=== PATIENT | female | born 1975 | race African-American/Black ===

== ENCOUNTER 2017-04-21 11:28 | Outpatient (CLI) | payer MEDICAID ==
[2017-04-21 12:34] LABS: #Basophils 0.1 thou/uL (0.0-0.2); #Eosinphils 0.2 thou/uL (0.0-0.7); #Lymphocytes 2.5 thou/uL (1.20-3.40); #Monocytes 0.7 thou/uL (0.11-0.59); #Neutrophils 4.4 thou/uL (1.40-6.50); %Eosinophils 2.5 % (0.0-10.0); %Lymphocytes 32.1 % (21.0-51.0); %Monocytes 8.4 % (0.0-10.0); Hematocrit 41.3 % (36.0-47.0); Mean Platelet Volume 6.3 fL (7.4-10.4); Red Blood Cell (RBC) Count 4.18 mill/uL (4.20-5.40); White Blood Cell (WBC) Count 7.8 thou/uL (4.8-10.8)
[2017-04-21 13:00] LABS: Anion Gap 15 mmol/L (10-20); BUN (Urea Nitrogen) 10 mg/dL (7.0-18.7); Calc. Creatinine Clearance 0 mL/min (70-130); Calcium 9.4 mg/dL (7.8-10.44); Carbon Dioxide 24 mmol/L (22-29); Chloride 105 mmol/L (98-107); Estimated GFR-MDRD Greater than 90
== END 2017-04-21 11:29 | disposition home or self-care (01) ==
LOC: LABBT 11:28
PROVIDERS: ATTEND Specialist
DX: Z01.812 Encounter for preprocedural laboratory examination (principal); L73.2 Hidradenitis suppurativa; L03.111 Cellulitis of right axilla
CPT/HCPCS: 80048; 85025

== ENCOUNTER 2017-04-29 07:34 | Day surgery (SDC) | payer MEDICAID, OTHER ==
[2017-04-21 11:37] VITALS: BMI 45.7
[2017-04-29] MEDS ORDERED: Ketorolac Tromethamine 30 MG/ML VIAL ONE (08:51)
[2017-04-29] MEDS ORDERED: Bupivacaine HCl 0.5%/Epinephrine 1:200,000/PF 30 ml Vial ONE (10:29)
[2017-04-29] MEDS ORDERED: Fentanyl 100 MCG/2 ML VIAL ONE (10:41)
[2017-04-29] MEDS ORDERED: Midazolam HCl 2 mg/2 ml Vial ONE (10:41)
[2017-04-29] MEDS ORDERED: Metoclopramide HCl 10 MG/2 ML VIAL ONE (10:55)
[2017-04-29] MEDS ORDERED: Dexamethasone 20 MG/5 ML VIAL ONE (10:55)
[2017-04-29] MEDS ORDERED: Lidocaine 1% PF 5 ML VIAL ONE (10:55)
[2017-04-29] MEDS ORDERED: Propofol 200 MG/20 ML VIAL ONE (10:55)
[2017-04-29] MEDS ORDERED: diphenhydrAMINE HCl 50 MG/ML 1 ML VIAL ONE (10:55)
[2017-04-29] MEDS ORDERED: Ondansetron HCl/PF 4 MG/2 ML Vial ONE (10:55)
[2017-04-29] MEDS ORDERED: Bacitracin Zinc Ointment 30 gm TUBE ONE (12:03)
--- NOTE | 2017-04-30 10:05 | OP ---
DATE OF OPERATION: 04/29/2017 PREOPERATIVE DIAGNOSIS: Right axillary hidradenitis. POSTOPERATIVE DIAGNOSIS: Right axillary hidradenitis. OPERATION PERFORMED: Wide excision of right axilla with complex closure of the wound. SURGEON: Bryce Salgado M.D. ANESTHESIA: General endotracheal. INDICATIONS: The patient is a morbidly obese 41-year-old black female. She has a long history of h idradenitis that is worse in her right axilla. There is persistent pain and drainage in this area i n spite of antibiotics. She is taken to the operating room at this time for excision of the hair be aring area with an attempt to close the wound. DESCRIPTION OF OPERATION: Informed consent was obtained. The patient was taken to the operating ro om where general endotracheal anesthesia was obtained with the patient in the supine position. Her right axilla was trimmed of hair, prepped with ChloraPrep, and draped in sterile fashion. The areas of the intended excision were mapped on the skin with a marking pen. Local anesthetic was infiltra emma using 0.5% Marcaine with epinephrine. An essentially elliptical incision was created extending from the inferior axilla on the chest wall to the superior area of the hair bearing area on the righ t upper arm. There was one area where there appeared to be some inflammatory tissue subcutaneously on the lateral aspect and this was excised wider to clean healthy tissue in all areas. The axillary skin with underlying infection was excised in continuity using electrocautery. Care was taken to a void deep dissection down into the axillary contents. The specimen was passed off the field. The w ound edges were mobilized by raising adipocutaneous flaps and undermined the skin in all directions for at least 2 cm. When I examined the possibility of closing the wound with a single longitudinal incision running along the longitudinal axis of the wound, I did not feel that this would approximat e without severe tension. I, therefore, decided to create a closure using a Carlie Jori closure. The wound edges were able to be approximated in the center where three areas of flap came together. The skin was trimmed somewhat to make this work better. I obtained a 19-[place]ian round fluted drain and brought this out inferiorly on the chest wall was secured with a 3-0 nylon suture. The wound w as copiously irrigated. It was then closed in layers using 3-0 Vicryl and 3-0 Prolene in layers. T he undermined tissue was approximated using the Vicryl. As mentioned, this came together with three separate legs of the incision extended out from the center. Antibiotic ointment was applied and dr zheng gauze dressing was placed externally. Sterile occlusive dressing was applied over the drain exit site. There were no complications. The patient tolerated the procedure well and was taken to [facility] room in stable condition.
== END 2017-04-29 14:14 | disposition home or self-care (01) ==
LOC: SDC 07:34
PROVIDERS: ATTEND Specialist
PROC: 0JBD0ZZ Excision of Right Upper Arm Subcutaneous Tissue and Fascia, Open Approach (ICD-10-PCS; principal; 2017-04-29)
DX: L72.0 Epidermal cyst (principal); L73.2 Hidradenitis suppurativa; L02.214 Cutaneous abscess of groin; Z79.2 Long term (current) use of antibiotics
CPT/HCPCS: 88304; J0131; J0670; J1100; J1200; J1885; J2001; J2250; J2405; J2704; J2765; J3010

== ENCOUNTER 2017-05-03 09:35 | Emergency (ER) | payer OTHER ==
[2017-05-03] MEDS ORDERED: traMADol HCl 50 MG TAB ONE (09:58)
[2017-05-03] MEDS ORDERED: Ketorolac Tromethamine 60 MG/2 ML VIAL ONE (10:12)
== END 2017-05-03 13:00 | disposition home or self-care (01) ==
LOC: ERS 09:35
DX: G89.18 Other acute postprocedural pain (principal); M79.621 Pain in right upper arm; F17.200 Nicotine dependence, unspecified, uncomplicated
CPT/HCPCS: 96372; J1885

== ENCOUNTER 2017-05-08 11:06 | Emergency (ER) | payer OTHER ==
[2017-05-08] MEDS ORDERED: Morphine Sulfate 2 MG/ML SYRINGE ONE (13:04)
== END 2017-05-08 14:58 | disposition home or self-care (01) ==
LOC: ERS 11:06
DX: S41.101A Unspecified open wound of right upper arm, initial encounter (principal); F17.200 Nicotine dependence, unspecified, uncomplicated; Z79.899 Other long term (current) drug therapy; X58.XXXA Exposure to other specified factors, initial encounter
CPT/HCPCS: 87070; 87077; 87186; 87205; 96374; J2270

== ENCOUNTER 2017-11-14 00:27 | Emergency (ER) | payer MEDICAID | END 2017-11-14 05:28 | disposition left against medical advice (07) | LOC: ERS 00:27 | DX: Z53.21 Procedure and treatment not carried out due to patient leaving prior to being seen by health care provider (principal) ==

== ENCOUNTER 2018-12-22 11:35 | Emergency (ER) | payer OTHER | END 2018-12-22 12:37 | disposition left against medical advice (07) | LOC: ERS 11:35 | DX: Z53.21 Procedure and treatment not carried out due to patient leaving prior to being seen by health care provider (principal) ==

== ENCOUNTER 2019-01-25 14:54 | Emergency (ER) | payer OTHER ==
[2019-01-25 17:01] LABS: #Basophils 0.1 thou/uL (0.0-0.2); #Eosinphils 0.1 thou/uL (0.0-0.7); #Lymphocytes 2.6 thou/uL (1.20-3.40); #Monocytes 0.6 thou/uL (0.11-0.59); #Neutrophils 9.1 thou/uL (1.40-6.50); %Basophils 0.5 % (0.0-1.0); %Eosinophils 0.6 % (0.0-10.0); %Lymphocytes 20.8 % (21.0-51.0); %Monocytes 5.1 % (0.0-10.0); Hemoglobin 12.4 g/dL (12.0-16.0); Mean Corpuscular HGB CONC 31.3 g/dL (32.0-36.0); Mean Corpuscular Hemoglobin 29.8 pg (27.0-31.0); Mean Corpuscular Volume 95.2 fL (78.0-98.0); Mean Platelet Volume 6.4 fL (7.4-10.4); Platelet Count 469 thou/uL (130-400); RBC Distribution Width 13.1 % (11.5-14.5); Red Blood Cell (RBC) Count 4.16 mill/uL (4.20-5.40); White Blood Cell (WBC) Count 12.5 thou/uL (4.8-10.8)
[2019-01-25 17:23] LABS: ALT (SGPT) 13 U/L (8-55); AST (SGOT) 12 U/L (5-34); Alkaline Phosphatase 86 U/L (40-150); Anion Gap 15 mmol/L (10-20); BUN (Urea Nitrogen) 6 mg/dL (7.0-18.7); Bilirubin, Total 0.2 mg/dL (0.2-1.2); Calc. Creatinine Clearance 0 mL/min (70-130); Calcium 9.3 mg/dL (7.8-10.44); Carbon Dioxide 26 mmol/L (22-29); Chloride 102 mmol/L (98-107); Estimated GFR-MDRD Greater than 90; Globulin 4.1 g/dL (2.4-3.5); Glucose 85 mg/dL (70-105); Potassium 3.6 mmol/L (3.5-5.1); Protein, Total 8.1 g/dL (6.0-8.3); Sodium 139 mmol/L (136-145)
== END 2019-01-25 18:08 | disposition home or self-care (01) ==
LOC: ERS 14:54
DX: S31.40XA Unspecified open wound of vagina and vulva, initial encounter (principal); B00.1 Herpesviral vesicular dermatitis; F17.210 Nicotine dependence, cigarettes, uncomplicated; X58.XXXA Exposure to other specified factors, initial encounter
CPT/HCPCS: 36415; 80053; 83605; 85025; 99283

== ENCOUNTER 2019-09-20 08:33 | Emergency (ER) | payer OTHER | END 2019-09-20 11:05 | disposition home or self-care (01) | LOC: ERS 08:33 | DX: A60.04 Herpesviral vulvovaginitis (principal); A49.9 Bacterial infection, unspecified; F17.210 Nicotine dependence, cigarettes, uncomplicated; Z79.899 Other long term (current) drug therapy | CPT/HCPCS: 99283 ==

== ENCOUNTER 2020-08-29 13:28 | Emergency (ER) | payer BC, OTHER ==
[2020-08-29 14:32] LABS: Bacteria/HPF 2+ HPF (None Seen); Bilirubin Negative (Negative); Blood, Urine Negative (Negative); Clarity Turbid (Clear); Glucose, Urine (Dipstick) Normal (Negative); Ketone, Urine Trace mg/dL (Negative); Leukocyte 500 Leu/uL (Negative); Nitrite Negative (Negative); Protein, Urine (Dipstick) 50 mg/dL (Neg-Trace); RBC/HPF 0-3 HPF (0-3); Specific Gravity, Urine 1.022 (1.002-1.036); WBC/HPF 21-50 HPF (0-3)
[2020-08-29 14:33] LABS: Pregnancy Test - Urine (BHCG) Negative (Negative); Pregu Control Background? CLEAR/WHITE (CLR/WHITE); Pregu Control Bar Appear? YES (CONTROL BAR); Specific Gravity 1.022 (1.002-1.036)
[2020-08-29 16:37] LABS: #Basophils 0.1 thou/uL (0.0-0.2); #Eosinphils 0.1 thou/uL (0.0-0.7); #Lymphocytes 3.3 thou/uL (1.20-3.40); #Monocytes 0.9 thou/uL (0.11-0.59); #Neutrophils 9.9 thou/uL (1.40-6.50); %Basophils 0.6 % (0.0-1.0); %Eosinophils 0.6 % (0.0-10.0); %Lymphocytes 22.9 % (21.0-51.0); %Monocytes 6.1 % (0.0-10.0); %Neutrophils 69.9 % (42.0-75.0); Hemoglobin 12.2 g/dL (12.0-16.0); Mean Corpuscular Hemoglobin 29.2 pg (27.0-31.0); Mean Corpuscular Volume 91.2 fL (78.0-98.0); Mean Platelet Volume 6.5 fL (7.4-10.4); Platelet Count 546 thou/uL (130-400); RBC Distribution Width 12.9 % (11.5-14.5); Red Blood Cell (RBC) Count 4.19 mill/uL (4.20-5.40); White Blood Cell (WBC) Count 14.2 thou/uL (4.8-10.8)
[2020-08-29 17:46] LABS: Albumin 3.4 g/dL (3.5-5.0)
[2020-08-29 17:48] LABS: Calcium 9.3 mg/dL (7.8-10.44); Chloride 102 mmol/L (98-107); Potassium 3.3 mmol/L (3.5-5.1); Sodium 139 mmol/L (136-145)
[2020-08-29 17:49] LABS: Globulin 5.2 g/dL (2.4-3.5); Glucose 93 mg/dL (70-105); Protein, Total 8.6 g/dL (6.0-8.3)
[2020-08-29 17:50] LABS: Anion Gap 18 mmol/L (10-20); Carbon Dioxide 22 mmol/L (22-29)
[2020-08-29 17:51] LABS: Bilirubin, Total 0.2 mg/dL (0.2-1.2)
[2020-08-29 17:52] LABS: Alkaline Phosphatase 79 U/L (40-110); Calc. Creatinine Clearance 0 mL/min (70-130)
[2020-08-29 17:53] LABS: BUN (Urea Nitrogen) 6 mg/dL (7.0-18.7)
[2020-08-29 17:54] LABS: AST (SGOT) 13 U/L (5-34)
[2020-08-29 17:55] LABS: ALT (SGPT) 10 U/L (8-55); CK (CPK) 38 U/L (29-168)
== END 2020-08-29 19:10 | disposition home or self-care (01) ==
LOC: ERS 13:28
DX: N39.0 Urinary tract infection, site not specified (principal); L02.412 Cutaneous abscess of left axilla; F17.210 Nicotine dependence, cigarettes, uncomplicated
CPT/HCPCS: 36415; 80053; 81003; 81015; 81025; 82550; 85025; 99284

== ENCOUNTER 2020-10-02 06:49 | Emergency (ER) | payer BC ==
[2020-10-02] MEDS ORDERED: Acetaminophen/Codeine 30-300mg Tablet ONE (08:23)
== END 2020-10-02 08:38 | disposition home or self-care (01) ==
LOC: ERS 06:49
DX: L73.2 Hidradenitis suppurativa (principal); F17.210 Nicotine dependence, cigarettes, uncomplicated
CPT/HCPCS: 99282

== ENCOUNTER 2020-10-15 09:43 | Outpatient (CLI) | payer BC ==
[2020-10-15 12:48] LABS: #Eosinphils 0.1 10x3/uL (0.0-0.5); #Monocytes 0.6 10x3/uL (0.0-1.1); #Neutrophils 5.1 10x3/uL (1.5-8.4); %Basophils 0.4 % (0.0-2.0); %Eosinophils 1.6 % (0.0-6.0); %Lymphocytes 24.1 % (18.0-47.0); %Monocytes 7.5 % (0.0-10.0); %Neutrophils 66.1 % (40.0-75.0); Hemoglobin 11.3 g/dL (12.0-15.5); Mean Corpuscular HGB CONC 31.5 g/dL (32.0-36.0); Mean Corpuscular Hemoglobin 28.3 pg (27.0-33.0); Mean Corpuscular Volume 89.8 fl (81.6-98.3); Mean Platelet Volume 8.8 fl (7.4-10.4); Platelet Count 620 10x3/uL (150-450); White Blood Cell (WBC) Count 7.6 10x3/uL (3.5-10.5)
[2020-10-15 13:35] LABS: Anion Gap 15 mmol/L (10-20); BUN (Urea Nitrogen) 7 mg/dL (7.0-18.7); Calc. Creatinine Clearance 0 mL/min (70-130); Carbon Dioxide 24 mmol/L (22-29); Chloride 105 mmol/L (98-107); Glucose 90 mg/dL (70-105); Sodium 140 mmol/L (136-145)
[2020-10-15 23:42] LABS: SARS-CoV-2 PCR by NAA Not Detected (NotDetected)
== END 2020-10-15 09:44 | disposition home or self-care (01) ==
LOC: LABBT 09:43
PROVIDERS: ATTEND Specialist
DX: Z01.812 Encounter for preprocedural laboratory examination (principal); L73.2 Hidradenitis suppurativa; L02.412 Cutaneous abscess of left axilla; Z20.822 Contact with and (suspected) exposure to COVID-19
CPT/HCPCS: 80048; 85025; 87635; U0003; U0005

== ENCOUNTER 2021-05-15 12:02 | Emergency (ER) | payer BC ==
[2021-05-15] MEDS ORDERED: Doxycycline 100 MG CAP PO SCH (13:30)
[2021-05-16 12:08] LABS: SARS-CoV-2 PCR by NAA Not Detected (NotDetected)
== END 2021-05-15 14:35 | disposition home or self-care (01) ==
LOC: ERS 12:02
DX: L73.2 Hidradenitis suppurativa (principal); Z20.822 Contact with and (suspected) exposure to COVID-19; F17.210 Nicotine dependence, cigarettes, uncomplicated
CPT/HCPCS: 87070; 87077; 87186; 87205; 99283; U0003; U0005

== ENCOUNTER 2021-12-12 10:54 | Inpatient (IN) | payer BC, MEDICAID ==
[2021-12-12] MEDS ORDERED: Iopamidol 370 76% 100 ML VIAL ONE (11:56)
[2021-12-12 13:11] LABS: #Basophils 0.1 thou/uL (0.0-0.2); #Eosinphils 0.1 thou/uL (0.0-0.7); #Lymphocytes 2.9 thou/uL (1.20-3.40); #Monocytes 0.5 thou/uL (0.11-0.59); %Basophils 0.7 % (0.0-1.0); %Eosinophils 0.7 % (0.0-10.0); %Lymphocytes 24.9 % (21.0-51.0); %Monocytes 4.6 % (0.0-10.0); %Neutrophils 69.1 % (42.0-75.0); Mean Corpuscular HGB CONC 30.6 g/dL (32.0-36.0); Mean Corpuscular Hemoglobin 27.7 pg (27.0-31.0); Mean Corpuscular Volume 90.4 fL (78.0-98.0); Mean Platelet Volume 6.1 fL (7.4-10.4); Platelet Count 697 thou/uL (130-400); RBC Distribution Width 15.1 % (11.5-14.5); Red Blood Cell (RBC) Count 3.98 mill/uL (4.20-5.40); White Blood Cell (WBC) Count 11.6 thou/uL (4.8-10.8)
[2021-12-12 13:27] LABS: BHCG - Serum Negative (NEGATIVE); Pregs Control Background? CLEAR/WHITE (CLR/WHITE); Pregs Control Bar Appear? YES (CONTROL BAR)
[2021-12-12 13:43] LABS: PTT 35.8 sec (22.9-36.1); Prothrombin Time 13.6 sec (12.0-14.7)
[2021-12-12 14:52] LABS: Calcium 9.1 mg/dL (7.8-10.44); Chloride 102 mmol/L (98-107); Potassium 4.4 mmol/L (3.5-5.1); Sodium 136 mmol/L (136-145)
[2021-12-12 14:53] LABS: Globulin 5.1 g/dL (2.4-3.5); Glucose 74 mg/dL (70-105); Protein, Total 8.1 g/dL (6.0-8.3)
[2021-12-12 14:54] LABS: Anion Gap 14 mmol/L (10-20); Carbon Dioxide 24 mmol/L (22-29)
[2021-12-12 14:55] LABS: Bilirubin, Total 0.3 mg/dL (0.2-1.2)
[2021-12-12 14:56] LABS: Alkaline Phosphatase 78 U/L (40-110); Calc. Creatinine Clearance 0 mL/min (70-130)
[2021-12-12 14:57] LABS: BUN (Urea Nitrogen) 7 mg/dL (7.0-18.7)
[2021-12-12 14:58] LABS: AST (SGOT) 14 U/L (5-34)
[2021-12-12 14:59] LABS: ALT (SGPT) 7 U/L (8-55); Magnesium 2.2 mg/dL (1.6-2.6)
[2021-12-12] MEDS ORDERED: Xylocaine 1% w/ Epi 1:100K 10 ML VIAL ONE (15:44)
[2021-12-12] MEDS ORDERED: Morphine 4 MG/ML VIAL ONE ×2 (15:58→19:27)
[2021-12-12] MEDS ORDERED: Cefepime 2 GM VIAL ONE (17:23)
[2021-12-12] MEDS ORDERED: Vancomycin 1 GM/200 ML BAG ONE (17:23)
[2021-12-12 17:26] LABS: RBC Count-Automated (BF) 125661 /cu.mm; WBC/Nucleated-Auto (BF) 223 /cu.mm
[2021-12-12] MEDS ORDERED: Ondansetron PF 4 MG/2 ML Vial IVP PRN (17:43)
[2021-12-12] MEDS ORDERED: Enoxaparin Sodium 40 MG/0.4 ML SYRINGE SC SCH (17:45)
[2021-12-12 17:52] LABS: BF Color Red; Body Fluid Source Synovial Fluid; Clarity Cloudy/Turbid (Clear); Tube # SYRINGE
[2021-12-12 17:55] LABS: BF Segmented Neutrophils 69 %; Cell Count Non Hematic 14 %; Lymphocytes 17 %
[2021-12-12 18:13] LABS: Bacteria/HPF None Seen HPF (None Seen); Bilirubin Negative (Negative); Blood, Urine Trace (Negative); Clarity Clear (Clear); Glucose, Urine (Dipstick) Normal (Negative); Ketone, Urine Negative (Negative); Leukocyte 500 Leu/uL (Negative); Nitrite Negative (Negative); Protein, Urine (Dipstick) 10 mg/dL (Neg-Trace); RBC/HPF 0-3 HPF (0-3); Squamous Epithelial 0-3 HPF (0-3); Urobilinogen 3 mg/dL (Less than 2)
[2021-12-12 18:14] LABS: Specific Gravity, Urine 1.051 (1.002-1.036)
[2021-12-12 19:17] LABS: Troponin I Less than 0.010 ng/mL (< 0.028)
[2021-12-12 21:59] LABS: Troponin I Less than 0.010 ng/mL (< 0.028)
[2021-12-12 22:03] VITALS: BMI 41.8
[2021-12-12] MEDS: Sodium Chloride 0.9% 1,000 ML IV SCH (22:29)
[2021-12-12] MEDS: Acetaminophen 325 MG TAB PO PRN (22:29)
[2021-12-12] MEDS: Vancomycin 1 GM in Premix Bag 1 BAG IVPB SCH (23:42)
[2021-12-13] MEDS ORDERED: Vancomycin 1 GM in Premix Bag 1 BAG IVPB SCH (02:00)
[2021-12-13] MEDS: Acetaminophen 325 MG TAB PO PRN (03:22)
[2021-12-13] MEDS ORDERED: Ibuprofen 200 MG TAB PO SCH (04:15)
[2021-12-13] MEDS: Cefepime 1 GM in Sodium Chloride 0.9% 100 ML IVPB SCH ×2 (04:19→17:23)
[2021-12-13 05:53] LABS: Hemoglobin 9.6 g/dL (12.0-16.0); Mean Corpuscular HGB CONC 30.8 g/dL (32.0-36.0); Mean Corpuscular Hemoglobin 27.8 pg (27.0-31.0); Mean Corpuscular Volume 90.2 fL (78.0-98.0); Platelet Count 492 thou/uL (130-400); RBC Distribution Width 15.1 % (11.5-14.5); Red Blood Cell (RBC) Count 3.47 mill/uL (4.20-5.40); White Blood Cell (WBC) Count 18.3 thou/uL (4.8-10.8)
[2021-12-13] MEDS: Sodium Chloride 0.9% 1,000 ML IV SCH ×2 (06:23→12:30)
[2021-12-13 06:43] LABS: Band 29 % (5-11); Lymphocytes 4 % (21-51); MDiff Complete? YES; Neutrophil 67 % (42-75)
[2021-12-13] MEDS: Vancomycin 1 GM in Premix Bag 1 BAG IVPB SCH ×2 (07:49→16:17)
[2021-12-13] MEDS: Enoxaparin Sodium 40 MG/0.4 ML SYRINGE SC SCH (07:50)
[2021-12-13] MEDS: HYDROcodone/Acetaminophen 5/325 mg Tablet PO PRN ×3 (12:30→20:40)
[2021-12-13 15:50] LABS: Vancomycin, Trough 15.6 ug/mL
[2021-12-13 16:45] LABS: SARS-CoV-2 PCR by NAA Not Detected (NotDetected)
[2021-12-13] MEDS: Morphine 2 MG/ML VIAL SLOW IVP PRN ×2 (18:08→22:24)
[2021-12-14] MEDS: Vancomycin 1 GM in Premix Bag 1 BAG IVPB SCH ×4 (00:05→23:34)
[2021-12-14] MEDS: Sodium Chloride 0.9% 1,000 ML IV SCH ×2 (00:06→16:23)
[2021-12-14] MEDS: Cefepime 1 GM in Sodium Chloride 0.9% 100 ML IVPB SCH ×2 (04:30→17:46)
[2021-12-14] MEDS: Morphine 2 MG/ML VIAL SLOW IVP PRN ×2 (04:36→09:37)
[2021-12-14 08:03] LABS: #Eosinphils 0.3 thou/uL (0.0-0.7); #Lymphocytes 1.4 thou/uL (1.20-3.40); #Monocytes 0.7 thou/uL (0.11-0.59); #Neutrophils 6.8 thou/uL (1.40-6.50); %Basophils 0.2 % (0.0-1.0); %Eosinophils 3.3 % (0.0-10.0); %Lymphocytes 15.1 % (21.0-51.0); %Monocytes 7.6 % (0.0-10.0); %Neutrophils 73.8 % (42.0-75.0); Hemoglobin 10.1 g/dL (12.0-16.0); Mean Corpuscular HGB CONC 30.4 g/dL (32.0-36.0); Mean Corpuscular Hemoglobin 28.2 pg (27.0-31.0); Mean Corpuscular Volume 92.6 fL (78.0-98.0); Mean Platelet Volume 6.4 fL (7.4-10.4); Platelet Count 380 thou/uL (130-400); Red Blood Cell (RBC) Count 3.58 mill/uL (4.20-5.40); White Blood Cell (WBC) Count 9.2 thou/uL (4.8-10.8)
[2021-12-14] MEDS: Enoxaparin Sodium 40 MG/0.4 ML SYRINGE SC SCH (08:22)
[2021-12-14 08:28] LABS: Anion Gap 13 mmol/L (10-20); BUN (Urea Nitrogen) 5 mg/dL (7.0-18.7); Calc. Creatinine Clearance 168 mL/min (70-130); Calcium 8.4 mg/dL (7.8-10.44); Carbon Dioxide 19 mmol/L (22-29); Chloride 110 mmol/L (98-107); Glucose 93 mg/dL (70-105); Potassium 3.7 mmol/L (3.5-5.1); Sodium 138 mmol/L (136-145)
[2021-12-14] MEDS: Ketorolac Tromethamine 30 MG/ML VIAL IVP PRN (14:53)
[2021-12-15] MEDS: Cefepime 1 GM in Sodium Chloride 0.9% 100 ML IVPB SCH (04:50)
[2021-12-15] MEDS: Ketorolac Tromethamine 30 MG/ML VIAL IVP PRN ×2 (04:55→13:12)
[2021-12-15] MEDS: Sodium Chloride 0.9% 1,000 ML IV SCH ×3 (04:58→22:00)
[2021-12-15 06:09] LABS: #Eosinphils 0.2 thou/uL (0.0-0.7); #Lymphocytes 1.7 thou/uL (1.20-3.40); #Monocytes 0.8 thou/uL (0.11-0.59); #Neutrophils 4.9 thou/uL (1.40-6.50); %Basophils 0.4 % (0.0-1.0); %Eosinophils 3.1 % (0.0-10.0); %Lymphocytes 22.1 % (21.0-51.0); %Monocytes 10.7 % (0.0-10.0); %Neutrophils 63.7 % (42.0-75.0); Hemoglobin 9.8 g/dL (12.0-16.0); Mean Corpuscular HGB CONC 29.7 g/dL (32.0-36.0); Mean Corpuscular Hemoglobin 27.6 pg (27.0-31.0); Mean Corpuscular Volume 92.8 fL (78.0-98.0); Mean Platelet Volume 6.5 fL (7.4-10.4); Platelet Count 392 thou/uL (130-400); RBC Distribution Width 15.1 % (11.5-14.5); Red Blood Cell (RBC) Count 3.55 mill/uL (4.20-5.40); White Blood Cell (WBC) Count 7.7 thou/uL (4.8-10.8)
[2021-12-15 06:28] LABS: BUN (Urea Nitrogen) Less than 4 mg/dL (7.0-18.7); Calc. Creatinine Clearance 170 mL/min (70-130); Calcium 8.4 mg/dL (7.8-10.44); Carbon Dioxide 21 mmol/L (22-29); Chloride 110 mmol/L (98-107); Glucose 90 mg/dL (70-105); Potassium 3.4 mmol/L (3.5-5.1); Sodium 139 mmol/L (136-145)
[2021-12-15] MEDS: Vancomycin 1 GM in Premix Bag 1 BAG IVPB SCH ×2 (09:34→15:51)
[2021-12-15] MEDS: Enoxaparin Sodium 40 MG/0.4 ML SYRINGE SC SCH (09:35)
[2021-12-15] MEDS: HYDROcodone/Acetaminophen 5/325 mg Tablet PO PRN ×2 (09:52→19:38)
[2021-12-15] MEDS ORDERED: Iopamidol-370 76% 500 ML 1 ML ONE (15:02)
[2021-12-15 15:26] LABS: Vancomycin, Trough 26.2 ug/mL
[2021-12-15] MEDS ORDERED: Vancomycin 1 GM in Premix Bag 1 BAG IVPB SCH (16:45)
[2021-12-15] MEDS ORDERED: Vancomycin 1 GM, Admixture Fee 1 EACH in Premix Bag 1 BAG IVPB SCH (16:45)
[2021-12-15] MEDS: Cefepime 2 GM in Sodium Chloride 0.9% 100 ML IVPB SCH (17:43)
[2021-12-15 20:52] LABS: Anion Gap 11 mmol/L (10-20)
[2021-12-15 23:51] LABS: Vancomycin, Random 21.2 ug/mL (See Comment)
[2021-12-16] MEDS: Vancomycin 1 GM in Premix Bag 1 BAG IVPB SCH ×3 (01:15→17:11)
[2021-12-16] MEDS: Cefepime 2 GM in Sodium Chloride 0.9% 100 ML IVPB SCH ×2 (04:53→18:26)
[2021-12-16 08:13] LABS: Hemoglobin 9.9 g/dL (12.0-16.0); Mean Corpuscular Hemoglobin 27.5 pg (27.0-31.0); Mean Corpuscular Volume 91.6 fL (78.0-98.0); Mean Platelet Volume 6.9 fL (7.4-10.4); Platelet Count 375 thou/uL (130-400); RBC Distribution Width 15.2 % (11.5-14.5)
[2021-12-16] MEDS: Enoxaparin Sodium 40 MG/0.4 ML SYRINGE SC SCH (08:36)
[2021-12-16 08:46] LABS: ALT (SGPT) 8 U/L (8-55); AST (SGOT) 10 U/L (5-34); Albumin 2.5 g/dL (3.5-5.0); Alkaline Phosphatase 79 U/L (40-110); Anion Gap 13 mmol/L (10-20); BUN (Urea Nitrogen) 5 mg/dL (7.0-18.7); Bilirubin, Total Less than 0.2 mg/dL (0.2-1.2); CRP (Inflammatory) 7.01 mg/dL (= or < 0.5); Calc. Creatinine Clearance 158 mL/min (70-130); Calcium 8.2 mg/dL (7.8-10.44); Carbon Dioxide 20 mmol/L (22-29); Chloride 111 mmol/L (98-107); Globulin 4.3 g/dL (2.4-3.5); Glucose 114 mg/dL (70-105); Magnesium 1.9 mg/dL (1.6-2.6); Potassium 3.9 mmol/L (3.5-5.1); Protein, Total 6.8 g/dL (6.0-8.3); Sodium 140 mmol/L (136-145)
[2021-12-16] MEDS: HYDROcodone/Acetaminophen 5/325 mg Tablet PO PRN ×3 (09:02→23:58)
[2021-12-16 09:15] LABS: Vancomycin, Random 22.2 ug/mL (See Comment)
[2021-12-16 09:16] LABS: #Eosinphils 0.3 thou/uL (0.0-0.7); #Monocytes 0.6 thou/uL (0.11-0.59); %Basophils 0.4 % (0.0-1.0); %Eosinophils 4.9 % (0.0-10.0); %Lymphocytes 28.8 % (21.0-51.0); %Monocytes 8.8 % (0.0-10.0); %Neutrophils 57.2 % (42.0-75.0); Eosinophils 2 % (0-10); Lymphocytes 33 % (21-51); MDiff Complete? YES; Monocytes 9 % (0-10); Neutrophil 55 % (42-75); Platelet Morphology Comment Appears Adequate; Polychromasia SLIGHT = 2-3 cells (100X) (0-2/hpf); Reactive Lymphocytes 1 % (0-10)
[2021-12-16] MEDS: Sodium Chloride 0.9% 1,000 ML IV SCH ×3 (09:48→23:58)
[2021-12-17] MEDS: Vancomycin 1 GM in Premix Bag 1 BAG IVPB SCH ×2 (01:26→09:30)
[2021-12-17] MEDS: Cefepime 2 GM in Sodium Chloride 0.9% 100 ML IVPB SCH (05:32)
[2021-12-17 07:51] LABS: #Eosinphils 0.4 thou/uL (0.0-0.7); #Lymphocytes 1.9 thou/uL (1.20-3.40); #Monocytes 0.7 thou/uL (0.11-0.59); #Neutrophils 3.7 thou/uL (1.40-6.50); %Basophils 0.6 % (0.0-1.0); %Eosinophils 5.7 % (0.0-10.0); %Lymphocytes 28.3 % (21.0-51.0); %Monocytes 10.8 % (0.0-10.0); %Neutrophils 54.7 % (42.0-75.0); Hemoglobin 8.9 g/dL (12.0-16.0); Hypochromia SLIGHT = 6-15 cells (100X) (0-5/hpf); MDiff Complete? YES; Mean Corpuscular HGB CONC 29.6 g/dL (32.0-36.0); Mean Corpuscular Hemoglobin 27.5 pg (27.0-31.0); Mean Corpuscular Volume 92.8 fL (78.0-98.0); Mean Platelet Volume 6.7 fL (7.4-10.4); Platelet Count 411 thou/uL (130-400); Platelet Morphology Comment Appears Increased; Polychromasia SLIGHT = 2-3 cells (100X) (0-2/hpf); RBC Distribution Width 15.1 % (11.5-14.5); Red Blood Cell (RBC) Count 3.23 mill/uL (4.20-5.40); White Blood Cell (WBC) Count 6.7 thou/uL (4.8-10.8)
[2021-12-17 09:14] VITALS: BP 98/60; TEMP 98.3
[2021-12-17] MEDS: Enoxaparin Sodium 40 MG/0.4 ML SYRINGE SC SCH (09:30)
== END 2021-12-17 17:16 | disposition home health service (06) | DRG 872 ==
LOC: ERS 10:54 → MSONC 17:43
PROVIDERS: ADMIT Internal Medicine; ATTEND Internal Medicine
PROC: 3E03329 Introduction of Other Anti-infective into Peripheral Vein, Percutaneous Approach (ICD-10-PCS; principal; 2021-12-12)
PROC: 0S9F3ZZ Drainage of Right Ankle Joint, Percutaneous Approach (ICD-10-PCS; 2021-12-12)
DX: A41.9 Sepsis, unspecified organism (principal); Z68.41 Body mass index [BMI] 40.0-44.9, adult; Z20.822 Contact with and (suspected) exposure to COVID-19; J30.2 Other seasonal allergic rhinitis; F17.210 Nicotine dependence, cigarettes, uncomplicated; E66.01 Morbid (severe) obesity due to excess calories; L73.2 Hidradenitis suppurativa; M76.71 Peroneal tendinitis, right leg; Z90.710 Acquired absence of both cervix and uterus
CPT/HCPCS: 36415; 70496; 70498; 74177; 80048; 80053; 80202; 81003; 81015; 82945; 83605; 83735; 84484; 84703; 85025; 85060; 85610; 85652; 85730; 86140; 87040; 87070; 87205; 87255; 89051; 89060; 93005; 96361; 96365; 96366; 96367; 96375; 96376; J0692; J1650; J1885; J2270; J3370; J3490; J7050; Q9967; U0003; U0005

== ENCOUNTER 2022-01-12 15:58 | Outpatient (CLI) | payer MEDICAID ==
[2022-01-12 17:03] LABS: #Basophils 0.1 10x3/uL (0.0-0.2); #Eosinphils 0.2 10x3/uL (0.0-0.5); #Monocytes 0.6 10x3/uL (0.0-1.1); #Neutrophils 7.3 10x3/uL (1.5-8.4); %Basophils 0.4 % (0.0-2.0); %Eosinophils 1.7 % (0.0-6.0); %Monocytes 5.2 % (0.0-10.0); %Neutrophils 65.1 % (40.0-75.0); Hemoglobin 9.8 g/dL (12.0-15.5); Mean Corpuscular HGB CONC 30.8 g/dL (32.0-36.0); Mean Corpuscular Hemoglobin 26.8 pg (27.0-33.0); Mean Corpuscular Volume 86.9 fl (81.6-98.3); Mean Platelet Volume 8.5 fl (7.4-10.4); Platelet Count 665 10x3/uL (150-450); RBC Distribution Width 17.3 % (11.5-14.5); Red Blood Cell (RBC) Count 3.66 10x6/uL (3.90-5.03); White Blood Cell (WBC) Count 11.3 10x3/uL (3.5-10.5)
[2022-01-12 17:34] LABS: ALT (SGPT) 8 U/L (8-55); AST (SGOT) 11 U/L (5-34); Albumin 3.5 g/dL (3.5-5.0); Alkaline Phosphatase 92 U/L (40-110); Anion Gap 18 mmol/L (10-20); BUN (Urea Nitrogen) 11 mg/dL (7.0-18.7); Bilirubin, Total 0.2 mg/dL (0.2-1.2); Calc. Creatinine Clearance 0 mL/min (70-130); Calcium 8.7 mg/dL (7.8-10.44); Carbon Dioxide 23 mmol/L (22-29); Chloride 105 mmol/L (98-107); Globulin 4.7 g/dL (2.4-3.5); Glucose 93 mg/dL (70-105); Potassium 3.9 mmol/L (3.5-5.1); Protein, Total 8.2 g/dL (6.0-8.3); Sodium 142 mmol/L (136-145)
== END 2022-01-12 15:59 | disposition home or self-care (01) ==
LOC: LABBT 15:58
PROVIDERS: ATTEND Surgery
DX: Z01.812 Encounter for preprocedural laboratory examination (principal); L73.2 Hidradenitis suppurativa; Z20.822 Contact with and (suspected) exposure to COVID-19
CPT/HCPCS: 80053; 85025; U0003; U0005

== ENCOUNTER 2022-01-16 10:10 | Day surgery (SDC) | payer MEDICARE, MEDICAID ==
[2022-01-14 15:19] VITALS: BMI 43.0
[2022-01-16] MEDS ORDERED: Famotidine/PF 20 mg/2ml Vial ONE (12:23)
[2022-01-16] MEDS ORDERED: fentaNYL Citrate/PF 100 MCG/2 ML SYRINGE ONE (12:23)
[2022-01-16] MEDS ORDERED: Bupivacaine 0.25% HCL 30 ML VIAL ONE (12:30)
[2022-01-16] MEDS ORDERED: Lidocaine 1% w/Epinephrine 1:100K 20 ML VIAL ONE (12:30)
[2022-01-16] MEDS ORDERED: Sodium Chloride 0.9% 100 ML ONE (12:37)
[2022-01-16] MEDS ORDERED: CEFAZOLIN 2 GM VIAL ONE (12:37)
[2022-01-16] MEDS ORDERED: Lidocaine 1% PF 5 ML VIAL ONE (12:54)
[2022-01-16] MEDS ORDERED: PROPOFOL 200 MG/20 ML VIAL ONE (12:54)
[2022-01-16] MEDS ORDERED: Ondansetron PF 4 MG/2 ML Vial ONE (12:54)
[2022-01-16] MEDS ORDERED: Ketorolac Tromethamine 30 MG/ML VIAL ONE (12:54)
[2022-01-16] MEDS ORDERED: Dexamethasone 20 MG/5 ML VIAL ONE (12:54)
[2022-01-16] MEDS ORDERED: Metoclopramide HCl 10 MG/2 ML VIAL ONE (12:54)
== END 2022-01-16 16:07 | disposition home or self-care (01) ==
LOC: SDC 10:10
PROVIDERS: ATTEND Surgery
PROC: 0JBF0ZZ Excision of Left Upper Arm Subcutaneous Tissue and Fascia, Open Approach (ICD-10-PCS; principal; 2022-01-16)
DX: L73.2 Hidradenitis suppurativa (principal)
CPT/HCPCS: 87070; 87205; J0690; J1100; J1885; J2405; J2704; J2765; J3490; S0020; S0028

== ENCOUNTER 2022-03-08 18:57 | Inpatient (IN) | payer OTHER, MEDICAID ==
[~2022-03-08 18:57] MED LIST: Iopamidol-370 76% 500 ML 1 ML ONE
[2022-03-08 21:08] LABS: #Eosinphils 0.1 thou/uL (0.0-0.7); #Lymphocytes 3.3 thou/uL (1.20-3.40); #Monocytes 0.8 thou/uL (0.11-0.59); #Neutrophils 8.6 thou/uL (1.40-6.50); %Basophils 0.4 % (0.0-1.0); %Eosinophils 0.7 % (0.0-10.0); %Lymphocytes 25.9 % (21.0-51.0); %Monocytes 5.9 % (0.0-10.0); %Neutrophils 67.1 % (42.0-75.0); Hemoglobin 10.9 g/dL (12.0-16.0); Mean Corpuscular HGB CONC 31.8 g/dL (32.0-36.0); Mean Corpuscular Hemoglobin 27.5 pg (27.0-31.0); Mean Corpuscular Volume 86.5 fL (78.0-98.0); Mean Platelet Volume 6.2 fL (7.4-10.4); Platelet Count 708 thou/uL (130-400); RBC Distribution Width 15.3 % (11.5-14.5); Red Blood Cell (RBC) Count 3.96 mill/uL (4.20-5.40); White Blood Cell (WBC) Count 12.8 thou/uL (4.8-10.8)
[2022-03-08 21:09] LABS: BHCG - Serum Negative (NEGATIVE); Pregs Control Background? CLEAR/WHITE (CLR/WHITE); Pregs Control Bar Appear? YES (CONTROL BAR)
[2022-03-08 21:28] LABS: ALT (SGPT) 11 U/L (8-55); AST (SGOT) 10 U/L (5-34); Albumin 3.2 g/dL (3.5-5.0); Alkaline Phosphatase 96 U/L (40-110); Anion Gap 15 mmol/L (10-20); BUN (Urea Nitrogen) 12 mg/dL (7.0-18.7); Bilirubin, Total Less than 0.2 mg/dL (0.2-1.2); Calc. Creatinine Clearance 0 mL/min (70-130); Calcium 8.9 mg/dL (7.8-10.44); Carbon Dioxide 24 mmol/L (22-29); Chloride 103 mmol/L (98-107); Estimated GFR 107; Globulin 4.9 g/dL (2.4-3.5); Glucose 101 mg/dL (70-105); Potassium 3.9 mmol/L (3.5-5.1); Protein, Total 8.1 g/dL (6.0-8.3); Sodium 138 mmol/L (136-145)
[2022-03-08] MEDS ORDERED: Ketorolac Tromethamine 30 MG/ML VIAL ONE (21:41)
[2022-03-09] MEDS ORDERED: cefTRIAXone\\ROCEPHIN 1 GM VIAL ONE (00:13)
[2022-03-09] MEDS ORDERED: Vancomycin 1 GM/200 ML BAG ONE (01:03)
[2022-03-09] MEDS ORDERED: Ondansetron ODT 4 MG TAB SL PRN (02:15)
[2022-03-09] MEDS ORDERED: Sodium Chloride 0.9% 1,000 ML IV SCH (02:15)
[2022-03-09] MEDS ORDERED: Ondansetron PF 4 MG/2 ML Vial IVP PRN (02:15)
[2022-03-09] MEDS ORDERED: Acetaminophen 325 MG TAB PO PRN ×2 (02:15→08:58)
[2022-03-09 03:27] VITALS: BMI 44.9
[2022-03-09] MEDS ORDERED: traMADol HCl 50 MG TAB PO SCH (05:00)
[2022-03-09] MEDS ORDERED: Bisacodyl 5 MG TAB PO PRN (08:58)
[2022-03-09] MEDS ORDERED: HYDROcodone/Acetaminophen 5/325 mg Tablet PO PRN (08:58)
[2022-03-09] MEDS ORDERED: Vancomycin 1 GM in Premix Bag 1 BAG IVPB SCH (09:00)
[2022-03-09] MEDS ORDERED: Vancomycin 1.5 GRAM/300 ML BAG 1.5 GM in Premix Bag 1 BAG IVPB SCH (09:00)
[2022-03-09] MEDS: Cefepime 2 GM in Sodium Chloride 0.9% 100 ML IVPB SCH ×2 (09:29→20:42)
[2022-03-09] MEDS: Nicotine 14 MG PATCH TD SCH (09:29)
[2022-03-09] MEDS: Enoxaparin Sodium 40 MG/0.4 ML SYRINGE SC SCH (09:29)
[2022-03-09] MEDS: Vancomycin 1.5 GRAM/300 ML BAG 1.5 GM in Premix Bag 1 BAG IVPB SCH ×2 (13:38→20:43)
[2022-03-09] MEDS ORDERED: Ketorolac Tromethamine 30 MG/ML VIAL IVP PRN (14:26)
[2022-03-09] MEDS: HYDROcodone/Acetaminophen 5/325 mg Tablet PO PRN (20:43)
[2022-03-10] MEDS: Vancomycin 1.5 GRAM/300 ML BAG 1.5 GM in Premix Bag 1 BAG IVPB SCH (05:52)
[2022-03-10] MEDS: HYDROcodone/Acetaminophen 5/325 mg Tablet PO PRN ×2 (05:57→12:15)
[2022-03-10 06:49] LABS: #Basophils 0.1 thou/uL (0.0-0.2); #Eosinphils 0.2 thou/uL (0.0-0.7); #Lymphocytes 1.5 thou/uL (1.20-3.40); #Monocytes 0.4 thou/uL (0.11-0.59); #Neutrophils 5.8 thou/uL (1.40-6.50); %Basophils 0.8 % (0.0-1.0); %Eosinophils 2.4 % (0.0-10.0); %Lymphocytes 18.6 % (21.0-51.0); %Monocytes 5.4 % (0.0-10.0); %Neutrophils 72.8 % (42.0-75.0); Hemoglobin 11.4 g/dL (12.0-16.0); Mean Corpuscular HGB CONC 30.2 g/dL (32.0-36.0); Mean Corpuscular Hemoglobin 27.1 pg (27.0-31.0); Mean Corpuscular Volume 89.9 fL (78.0-98.0); Mean Platelet Volume 6.1 fL (7.4-10.4); Platelet Count 478 thou/uL (130-400); RBC Distribution Width 15.3 % (11.5-14.5); Red Blood Cell (RBC) Count 4.19 mill/uL (4.20-5.40); White Blood Cell (WBC) Count 7.9 thou/uL (4.8-10.8)
[2022-03-10 07:08] LABS: Anion Gap 16 mmol/L (10-20); BUN (Urea Nitrogen) 5 mg/dL (7.0-18.7); Calc. Creatinine Clearance 167 mL/min (70-130); Calcium 8.8 mg/dL (7.8-10.44); Carbon Dioxide 19 mmol/L (22-29); Chloride 105 mmol/L (98-107); Estimated GFR 109; Glucose 91 mg/dL (70-105); Sodium 135 mmol/L (136-145)
[2022-03-10] MEDS: Enoxaparin Sodium 40 MG/0.4 ML SYRINGE SC SCH (09:35)
[2022-03-10] MEDS: Cefepime 2 GM in Sodium Chloride 0.9% 100 ML IVPB SCH (09:37)
[2022-03-10] MEDS: Nicotine 14 MG PATCH TD SCH (09:37)
[2022-03-10 13:12] LABS: Vancomycin, Trough 35.2 ug/mL
[2022-03-10] MEDS: Doxycycline 100 MG CAP PO SCH (20:59)
[2022-03-10] MEDS: Ketorolac Tromethamine 30 MG/ML VIAL IVP SCH (22:07)
[2022-03-11] MEDS: Ketorolac Tromethamine 30 MG/ML VIAL IVP SCH ×4 (00:03→17:58)
[2022-03-11] MEDS: HYDROcodone/Acetaminophen 5/325 mg Tablet PO PRN ×3 (00:48→13:59)
[2022-03-11] MEDS: Doxycycline 100 MG CAP PO SCH ×2 (08:56→20:23)
[2022-03-11] MEDS: Enoxaparin Sodium 40 MG/0.4 ML SYRINGE SC SCH (08:56)
[2022-03-11] MEDS: Nicotine 14 MG PATCH TD SCH (08:59)
[2022-03-11 14:32] LABS: Chlam.trachomatis by PCR,Urine Not Detected (NotDetected)
[2022-03-11] MEDS ORDERED: Magnesium Citrate 300 ML BOT PO SCH (18:15)
[2022-03-12] MEDS: Ketorolac Tromethamine 30 MG/ML VIAL IVP SCH ×4 (00:12→18:14)
[2022-03-12] MEDS: Enoxaparin Sodium 40 MG/0.4 ML SYRINGE SC SCH (09:18)
[2022-03-12] MEDS: Doxycycline 100 MG CAP PO SCH ×2 (09:19→20:49)
[2022-03-12] MEDS: Nicotine 14 MG PATCH TD SCH (09:19)
[2022-03-12] MEDS: HYDROcodone/Acetaminophen 5/325 mg Tablet PO PRN (20:49)
[2022-03-13] MEDS: Ketorolac Tromethamine 30 MG/ML VIAL IVP SCH ×3 (00:03→12:00)
[2022-03-13] MEDS: Doxycycline 100 MG CAP PO SCH (08:38)
[2022-03-13] MEDS: Enoxaparin Sodium 40 MG/0.4 ML SYRINGE SC SCH (08:38)
[2022-03-13] MEDS: Nicotine 14 MG PATCH TD SCH (08:44)
[2022-03-13] MEDS: HYDROcodone/Acetaminophen 5/325 mg Tablet PO PRN (08:44)
[2022-03-13 08:50] VITALS: TEMP 97.9
[2022-03-13 12:15] VITALS: BP 90/55
[2022-03-15 17:10] LABS: ANA Symphony (Qualitative) Negative (Negative); ANA Symphony (Quantitative) 0.5 Ratio (< 0.7 Negative); dsDNA IgG Antibody 1.6 IU/mL (<10 Negative)
== END 2022-03-13 14:00 | disposition home or self-care (01) | DRG 558 ==
LOC: ERS 18:57 → T4-B 03-09 00:48 → OBSVTOIN 03-11 16:23
PROVIDERS: ADMIT Student in an Organized Health Care Education/Training Program; ATTEND Physician Assistant
DX: M65.872 Other synovitis and tenosynovitis, left ankle and foot (principal); M19.072 Primary osteoarthritis, left ankle and foot; M19.071 Primary osteoarthritis, right ankle and foot; E78.5 Hyperlipidemia, unspecified; I10 Essential (primary) hypertension; Z20.822 Contact with and (suspected) exposure to COVID-19; L73.2 Hidradenitis suppurativa; L20.9 Atopic dermatitis, unspecified; F17.210 Nicotine dependence, cigarettes, uncomplicated; M65.871 Other synovitis and tenosynovitis, right ankle and foot; Z90.710 Acquired absence of both cervix and uterus
CPT/HCPCS: 36415; 74177; 80048; 80053; 80202; 83605; 83880; 84703; 85025; 85652; 86038; 86140; 86225; 87040; 87491; 87591; 93005; 96365; 96372; 96375; 96376; G0378; J0692; J0696; J1650; J1885; J3370; J3490; J7050; Q9967; U0003; U0005

== ENCOUNTER 2022-04-17 14:37 | Inpatient (IN) | payer OTHER, MEDICAID ==
[2022-04-17 17:07] LABS: #Eosinphils 0.1 thou/uL (0.0-0.7); #Monocytes 0.8 thou/uL (0.11-0.59); #Neutrophils 7.7 thou/uL (1.40-6.50); %Basophils 0.3 % (0.0-1.0); %Eosinophils 0.8 % (0.0-10.0); %Lymphocytes 25.5 % (21.0-51.0); %Monocytes 6.6 % (0.0-10.0); %Neutrophils 66.8 % (42.0-75.0); Hemoglobin 11.2 g/dL (12.0-16.0); Mean Corpuscular HGB CONC 31.3 g/dL (32.0-36.0); Mean Corpuscular Hemoglobin 27.9 pg (27.0-31.0); Mean Platelet Volume 6.3 fL (7.4-10.4); Platelet Count 559 thou/uL (130-400); RBC Distribution Width 16.8 % (11.5-14.5); White Blood Cell (WBC) Count 11.6 thou/uL (4.8-10.8)
[2022-04-17 17:26] LABS: Anion Gap 14 mmol/L (10-20); BUN (Urea Nitrogen) 7 mg/dL (7.0-18.7); Calc. Creatinine Clearance 0 mL/min (70-130); Calcium 8.7 mg/dL (7.8-10.44); Carbon Dioxide 22 mmol/L (22-29); Chloride 105 mmol/L (98-107); Estimated GFR 105; Glucose 86 mg/dL (70-105); Potassium 4.1 mmol/L (3.5-5.1); Sodium 137 mmol/L (136-145)
[2022-04-17] MEDS ORDERED: Vancomycin 1 GM/200 ML BAG ONE (17:52)
[2022-04-17] MEDS ORDERED: Morphine 4 MG/ML VIAL ONE (17:53)
[2022-04-17] MEDS ORDERED: Cefepime 2 GM VIAL ONE (18:09)
[2022-04-17] MEDS ORDERED: HYDROcodone/Acetaminophen 10/325 mg Tablet PO PRN (20:26)
[2022-04-17] MEDS ORDERED: Ondansetron ODT 4 MG TAB SL PRN (20:30)
[2022-04-17] MEDS ORDERED: Acetaminophen 325 MG TAB PO PRN (20:30)
[2022-04-17] MEDS ORDERED: Ondansetron PF 4 MG/2 ML Vial IVP PRN (20:30)
[2022-04-17 23:08] VITALS: BMI 45.3
[2022-04-18] MEDS: Morphine 4 MG/ML VIAL SLOW IVP PRN ×3 (04:14→20:21)
[2022-04-18] MEDS: Vancomycin 1.5 GRAM/300 ML BAG 1.5 GM in Premix Bag 1 BAG IVPB SCH ×2 (05:13→17:01)
[2022-04-18] MEDS: Nicotine 21 MG PATCH TD SCH (05:13)
[2022-04-18 06:03] LABS: ALT (SGPT) 12 U/L (8-55); AST (SGOT) 11 U/L (5-34); Albumin 3.1 g/dL (3.5-5.0); Alkaline Phosphatase 101 U/L (40-110); Anion Gap 11 mmol/L (10-20); BUN (Urea Nitrogen) 6 mg/dL (7.0-18.7); Bilirubin, Total 0.8 mg/dL (0.2-1.2); Calc. Creatinine Clearance 151 mL/min (70-130); Calcium 8.5 mg/dL (7.8-10.44); Carbon Dioxide 25 mmol/L (22-29); Chloride 103 mmol/L (98-107); Estimated GFR 95; Globulin 4.5 g/dL (2.4-3.5); Glucose 102 mg/dL (70-105); Potassium 3.7 mmol/L (3.5-5.1); Protein, Total 7.6 g/dL (6.0-8.3); Sodium 135 mmol/L (136-145)
[2022-04-18] MEDS: Cefepime 2 GM in Sodium Chloride 0.9% 100 ML IVPB SCH ×2 (08:17→20:16)
[2022-04-18 08:49] LABS: Band 11 % (5-11); Hemoglobin 12.6 g/dL (12.0-16.0); Hypochromia SLIGHT = 6-15 cells (100X) (0-5/hpf); Lymphocytes 13 % (21-51); MDiff Complete? YES; Mean Corpuscular HGB CONC 30.9 g/dL (32.0-36.0); Mean Corpuscular Hemoglobin 28.3 pg (27.0-31.0); Mean Corpuscular Volume 91.9 fL (78.0-98.0); Mean Platelet Volume 7.4 fL (7.4-10.4); Monocytes 4 % (0-10); Neutrophil 70 % (42-75); Platelet Count 355 thou/uL (130-400); Platelet Morphology Comment Appears Adequate; Polychromasia SLIGHT = 2-3 cells (100X) (0-2/hpf); RBC Distribution Width 17.2 % (11.5-14.5); Reactive Lymphocytes 2 % (0-10); Red Blood Cell (RBC) Count 4.44 mill/uL (4.20-5.40); Schistocytes SLIGHT = 2-5 cells (100X) (0-1/hpf); Target Cells SLIGHT = 2-5 cells (100X) (0-1/hpf); Tear Drops SLIGHT = 2-5 cells (100X) (0-1/hpf)
[2022-04-18] MEDS ORDERED: Acetaminophen 325 MG TAB PO PRN (16:38)
[2022-04-19] MEDS: Morphine 4 MG/ML VIAL SLOW IVP PRN ×3 (03:26→16:50)
[2022-04-19] MEDS: Nicotine 21 MG PATCH TD SCH (05:47)
[2022-04-19] MEDS: Vancomycin 1.5 GRAM/300 ML BAG 1.5 GM in Premix Bag 1 BAG IVPB SCH ×2 (05:48→18:12)
[2022-04-19 06:57] LABS: #Eosinphils 0.2 thou/uL (0.0-0.7); #Lymphocytes 1.2 thou/uL (1.20-3.40); #Monocytes 0.4 thou/uL (0.11-0.59); #Neutrophils 4.9 thou/uL (1.40-6.50); %Basophils 0.6 % (0.0-1.0); %Eosinophils 3.1 % (0.0-10.0); %Lymphocytes 17.9 % (21.0-51.0); %Monocytes 5.4 % (0.0-10.0); Hemoglobin 11.9 g/dL (12.0-16.0); Mean Corpuscular HGB CONC 31.2 g/dL (32.0-36.0); Mean Corpuscular Hemoglobin 28.1 pg (27.0-31.0); Mean Platelet Volume 6.5 fL (7.4-10.4); Platelet Count 375 thou/uL (130-400); RBC Distribution Width 16.9 % (11.5-14.5); Red Blood Cell (RBC) Count 4.23 mill/uL (4.20-5.40); White Blood Cell (WBC) Count 6.7 thou/uL (4.8-10.8)
[2022-04-19 07:11] LABS: Anion Gap 14 mmol/L (10-20); BUN (Urea Nitrogen) 8 mg/dL (7.0-18.7); Calc. Creatinine Clearance 164 mL/min (70-130); Calcium 8.8 mg/dL (7.8-10.44); Carbon Dioxide 21 mmol/L (22-29); Chloride 106 mmol/L (98-107); Estimated GFR 105; Glucose 87 mg/dL (70-105); Potassium 3.9 mmol/L (3.5-5.1); Sodium 137 mmol/L (136-145)
[2022-04-19] MEDS: Cefepime 2 GM in Sodium Chloride 0.9% 100 ML IVPB SCH ×2 (08:58→19:48)
[2022-04-19] MEDS ORDERED: fentaNYL Citrate/PF 100 MCG/2 ML SYRINGE ONE (10:27)
[2022-04-19] MEDS ORDERED: PROPOFOL 200 MG/20 ML VIAL ONE (10:34)
[2022-04-19] MEDS ORDERED: Dexamethasone 20 MG/5 ML VIAL ONE (10:34)
[2022-04-19] MEDS ORDERED: Ondansetron PF 4 MG/2 ML Vial ONE (10:34)
[2022-04-19] MEDS ORDERED: Ketorolac Tromethamine 30 MG/ML VIAL ONE (10:34)
[2022-04-19] MEDS ORDERED: Lidocaine 1% MPF 2 ML VIAL ONE (10:34)
[2022-04-19] MEDS ORDERED: ePHEDrine 50 MG/ML VIAL ONE (10:34)
[2022-04-19] MEDS ORDERED: PACU-Morphine 4MG/ML VIAL SLOW IVP PRN (11:51)
[2022-04-19] MEDS ORDERED: Promethazine HCl 25 MG/ML VIAL IM PRN ×2 (11:51→11:52)
[2022-04-19] MEDS ORDERED: Ondansetron HCl/PF 4 MG/2 ML Vial IVP PRN ×2 (11:51→11:52)
[2022-04-19] MEDS ORDERED: Promethazine HCl 25 MG/ML VIAL IVPB PRN ×2 (11:51→11:52)
[2022-04-19] MEDS ORDERED: HYDROmorphone 2 MG/ML VIAL SLOW IVP PRN (11:51)
[2022-04-19] MEDS ORDERED: Fentanyl 100 MCG/2 ML VIAL ONE (11:53)
[2022-04-19] MEDS ORDERED: HYDROcodone/Acetaminophen 5/325 mg Tablet PO PRN (12:00)
[2022-04-19] MEDS: HYDROcodone/Acetaminophen 5/325 mg Tablet PO PRN ×2 (12:47→19:47)
[2022-04-19 17:23] LABS: Vancomycin, Trough 13.7 ug/mL
[2022-04-19] MEDS: Senokot 8.6 MG TAB PO SCH (19:47)
[2022-04-20] MEDS: HYDROcodone/Acetaminophen 5/325 mg Tablet PO PRN (01:57)
[2022-04-20] MEDS: Morphine 4 MG/ML VIAL SLOW IVP PRN ×4 (03:18→20:21)
[2022-04-20] MEDS: Vancomycin 1.5 GRAM/300 ML BAG 1.5 GM in Premix Bag 1 BAG IVPB SCH ×2 (05:31→18:04)
[2022-04-20] MEDS: Nicotine 21 MG PATCH TD SCH (05:31)
[2022-04-20 08:21] LABS: #Eosinphils 0.1 thou/uL (0.0-0.7); #Lymphocytes 2.1 thou/uL (1.20-3.40); #Monocytes 0.9 thou/uL (0.11-0.59); #Neutrophils 9.2 thou/uL (1.40-6.50); %Basophils 0.1 % (0.0-1.0); %Eosinophils 0.4 % (0.0-10.0); %Lymphocytes 17.2 % (21.0-51.0); %Monocytes 7.7 % (0.0-10.0); %Neutrophils 74.6 % (42.0-75.0); Mean Corpuscular HGB CONC 30.7 g/dL (32.0-36.0); Mean Corpuscular Hemoglobin 27.7 pg (27.0-31.0); Mean Corpuscular Volume 90.3 fL (78.0-98.0); Platelet Count 286 thou/uL (130-400); RBC Distribution Width 16.7 % (11.5-14.5); Red Blood Cell (RBC) Count 3.96 mill/uL (4.20-5.40); White Blood Cell (WBC) Count 12.3 thou/uL (4.8-10.8)
[2022-04-20] MEDS: Cefepime 2 GM in Sodium Chloride 0.9% 100 ML IVPB SCH ×2 (08:23→20:21)
[2022-04-20 08:29] LABS: Anion Gap 13 mmol/L (10-20); BUN (Urea Nitrogen) 12 mg/dL (7.0-18.7); Calc. Creatinine Clearance 166 mL/min (70-130); Calcium 8.7 mg/dL (7.8-10.44); Carbon Dioxide 21 mmol/L (22-29); Chloride 107 mmol/L (98-107); Estimated GFR 107; Glucose 105 mg/dL (70-105); Potassium 3.9 mmol/L (3.5-5.1); Sodium 137 mmol/L (136-145)
[2022-04-20] MEDS: Senokot 8.6 MG TAB PO SCH (20:21)
[2022-04-20] MEDS ORDERED: Enoxaparin Sodium 40 MG/0.4 ML SYRINGE SC SCH (21:00)
[2022-04-21] MEDS: Morphine 4 MG/ML VIAL SLOW IVP PRN ×2 (02:56→08:30)
[2022-04-21] MEDS: Nicotine 21 MG PATCH TD SCH (05:01)
[2022-04-21] MEDS: Vancomycin 1.5 GRAM/300 ML BAG 1.5 GM in Premix Bag 1 BAG IVPB SCH (05:01)
[2022-04-21] MEDS: HYDROcodone/Acetaminophen 5/325 mg Tablet PO PRN ×2 (05:08→11:16)
[2022-04-21 06:13] LABS: #Eosinphils 0.2 thou/uL (0.0-0.7); #Lymphocytes 2.4 thou/uL (1.20-3.40); #Monocytes 0.9 thou/uL (0.11-0.59); #Neutrophils 3.7 thou/uL (1.40-6.50); %Basophils 0.6 % (0.0-1.0); %Eosinophils 2.4 % (0.0-10.0); %Lymphocytes 33.4 % (21.0-51.0); %Neutrophils 51.6 % (42.0-75.0); Hemoglobin 10.1 g/dL (12.0-16.0); Mean Corpuscular HGB CONC 30.8 g/dL (32.0-36.0); Mean Corpuscular Volume 91.1 fL (78.0-98.0); Mean Platelet Volume 6.7 fL (7.4-10.4); Platelet Count 375 thou/uL (130-400); RBC Distribution Width 16.8 % (11.5-14.5); Red Blood Cell (RBC) Count 3.61 mill/uL (4.20-5.40); White Blood Cell (WBC) Count 7.2 thou/uL (4.8-10.8)
[2022-04-21 06:31] LABS: Anion Gap 10 mmol/L (10-20); BUN (Urea Nitrogen) 10 mg/dL (7.0-18.7); Calc. Creatinine Clearance 182 mL/min (70-130); Calcium 8.5 mg/dL (7.8-10.44); Carbon Dioxide 23 mmol/L (22-29); Chloride 110 mmol/L (98-107); Estimated GFR 111; Glucose 97 mg/dL (70-105); Sodium 139 mmol/L (136-145)
[2022-04-21] MEDS: Cefepime 2 GM in Sodium Chloride 0.9% 100 ML IVPB SCH (08:28)
[2022-04-21 16:34] VITALS: BP 112/79; TEMP 98.1
== END 2022-04-21 17:31 | disposition home or self-care (01) | DRG 603 ==
LOC: ERS 14:37 → T4-A 18:08 → OBSVTOIN 04-19 18:05
PROVIDERS: ADMIT Hospitalist; ATTEND Hospitalist
PROC: 0H9JXZZ Drainage of Left Upper Leg Skin, External Approach (ICD-10-PCS; principal; 2022-04-19)
DX: L02.214 Cutaneous abscess of groin (principal); Z68.42 Body mass index [BMI] 45.0-49.9, adult; L73.2 Hidradenitis suppurativa; F17.210 Nicotine dependence, cigarettes, uncomplicated; E66.01 Morbid (severe) obesity due to excess calories; Z90.710 Acquired absence of both cervix and uterus
CPT/HCPCS: 36415; 36416; 80048; 80053; 80202; 83605; 85025; 87070; 87205; 96366; 96367; 96376; 97139; G0378; J0692; J1100; J1650; J1885; J2270; J2405; J2704; J3010; J3370; J3490; U0003; U0005

== ENCOUNTER 2022-05-04 01:26 | Emergency (ER) | payer OTHER, MEDICAID ==
[2022-05-04] MEDS ORDERED: Ketorolac Tromethamine 30 MG/ML VIAL ONE (02:21)
[2022-05-04 02:23] LABS: #Basophils 0.1 thou/uL (0.0-0.2); #Eosinphils 0.1 thou/uL (0.0-0.7); #Lymphocytes 2.5 thou/uL (1.20-3.40); #Monocytes 0.6 thou/uL (0.11-0.59); #Neutrophils 4.8 thou/uL (1.40-6.50); %Basophils 0.7 % (0.0-1.0); %Eosinophils 0.9 % (0.0-10.0); %Lymphocytes 31.3 % (21.0-51.0); %Monocytes 6.8 % (0.0-10.0); %Neutrophils 60.2 % (42.0-75.0); Hemoglobin 10.7 g/dL (12.0-16.0); Mean Corpuscular HGB CONC 31.6 g/dL (32.0-36.0); Mean Corpuscular Hemoglobin 28.5 pg (27.0-31.0); Mean Platelet Volume 6.2 fL (7.4-10.4); Platelet Count 652 thou/uL (130-400); RBC Distribution Width 16.7 % (11.5-14.5); Red Blood Cell (RBC) Count 3.75 mill/uL (4.20-5.40); White Blood Cell (WBC) Count 8.1 thou/uL (4.8-10.8)
[2022-05-04 02:38] LABS: ALT (SGPT) Less than 7 U/L (8-55); AST (SGOT) 16 U/L (5-34); Albumin 3.3 g/dL (3.5-5.0); Alkaline Phosphatase 83 U/L (40-110); Anion Gap 15 mmol/L (10-20); BUN (Urea Nitrogen) 7 mg/dL (7.0-18.7); Bilirubin, Total Less than 0.2 mg/dL (0.2-1.2); Calc. Creatinine Clearance 0 mL/min (70-130); Carbon Dioxide 19 mmol/L (22-29); Chloride 109 mmol/L (98-107); Estimated GFR 102; Globulin 4.9 g/dL (2.4-3.5); Glucose 96 mg/dL (70-105); Potassium 4.4 mmol/L (3.5-5.1); Protein, Total 8.2 g/dL (6.0-8.3); Sodium 139 mmol/L (136-145)
== END 2022-05-04 03:30 | disposition home or self-care (01) ==
LOC: ERS 01:26
DX: G89.18 Other acute postprocedural pain (principal); R10.32 Left lower quadrant pain; F17.210 Nicotine dependence, cigarettes, uncomplicated; Z20.822 Contact with and (suspected) exposure to COVID-19
CPT/HCPCS: 80053; 85025; 96372; 99283; U0003; U0005; 36415; J1885

== ENCOUNTER 2022-09-08 12:18 | Inpatient (IN) | payer OTHER, MEDICAID, MEDICARE ==
[2022-09-08] MEDS ORDERED: Lidocaine 1% (PF) 30 ML VIAL ONE (13:54)
[2022-09-08] MEDS ORDERED: HYDROcodone/Acetaminophen 5/325 mg Tablet ONE (14:27)
[2022-09-08] MEDS ORDERED: Ketorolac Tromethamine 30 MG/ML VIAL ONE (15:15)
[2022-09-08 15:32] LABS: #Eosinphils 0.1 thou/uL (0.0-0.7); #Lymphocytes 2.7 thou/uL (1.20-3.40); #Monocytes 0.6 thou/uL (0.11-0.59); #Neutrophils 9.5 thou/uL (1.40-6.50); %Basophils 0.2 % (0.0-1.0); %Eosinophils 1.1 % (0.0-10.0); %Lymphocytes 20.8 % (21.0-51.0); %Monocytes 4.7 % (0.0-10.0); %Neutrophils 73.2 % (42.0-75.0); Hemoglobin 10.7 g/dL (12.0-16.0); Mean Corpuscular HGB CONC 31.9 g/dL (32.0-36.0); Mean Corpuscular Hemoglobin 28.2 pg (27.0-31.0); Mean Corpuscular Volume 88.6 fl (78.0-98.0); Mean Platelet Volume 6.5 fL (7.4-10.4); Platelet Count 631 10x3/uL (130-400); RBC Distribution Width 16.2 % (11.5-14.5); Red Blood Cell (RBC) Count 3.78 mill/uL (4.20-5.40); White Blood Cell (WBC) Count 12.9 10x3/uL (4.8-10.8)
[2022-09-08 15:46] LABS: ALT (SGPT) Less than 7 U/L (8-55); AST (SGOT) 12 U/L (5-34); Albumin 3.3 g/dL (3.5-5.0); Alkaline Phosphatase 99 U/L (40-110); Anion Gap 16 mmol/L (10-20); BUN (Urea Nitrogen) 7 mg/dL (7.0-18.7); Bilirubin, Total 0.3 mg/dL (0.2-1.2); Calc. Creatinine Clearance 0 mL/min (70-130); Calcium 8.8 mg/dL (7.8-10.44); Carbon Dioxide 22 mmol/L (22-29); Chloride 106 mmol/L (98-107); Estimated GFR 109; Globulin 5.2 g/dL (2.4-3.5); Glucose 97 mg/dL (70-105); Protein, Total 8.5 g/dL (6.0-8.3); Sodium 140 mmol/L (136-145)
[2022-09-08 16:05] LABS: SARS-CoV-2 NAA Rapid Test Not Detected (NotDetected)
[2022-09-08] MEDS ORDERED: Neomycin-Polymyxin 1 ML AMP ONE (16:07)
[2022-09-08] MEDS ORDERED: Bacitracin Zinc Ointment 30 gm TUBE ONE (16:07)
[2022-09-08] MEDS ORDERED: Bupivacaine PF 0.5% 30 ML VIAL ONE (16:46)
[2022-09-08] MEDS ORDERED: traMADol HCl 50 MG TAB PO PRN (16:54)
[2022-09-08] MEDS ORDERED: Fentanyl 100 MCG/2 ML VIAL SLOW IVP PRN (16:54)
[2022-09-08] MEDS ORDERED: Ondansetron PF 4 MG/2 ML Vial IVP PRN (16:54)
[2022-09-08] MEDS ORDERED: Acetaminophen/Codeine 30-300mg Tablet PO PRN (16:54)
[2022-09-08] MEDS ORDERED: Acetaminophen 325 MG TAB PO PRN (16:54)
[2022-09-08] MEDS ORDERED: TETANUS, DIPHTHERIA TOX,ADULT (TDVAX) 0.5 ML VIAL IM ONE (16:54)
[2022-09-08] MEDS ORDERED: Famotidine/PF 20 mg/2ml Vial ONE (16:56)
[2022-09-08] MEDS ORDERED: fentaNYL PF 100 MCG/2 ML SYRINGE ONE (16:56)
[2022-09-08] MEDS ORDERED: Communication Order-Pharmacy FS SCH (17:00)
[2022-09-08] MEDS ORDERED: Ketorolac Tromethamine 30 MG/ML VIAL IVP PRN (17:05)
[2022-09-08] MEDS ORDERED: Ondansetron PF 4 MG/2 ML Vial ONE (17:15)
[2022-09-08] MEDS ORDERED: Lidocaine 1% PF 5 ML VIAL ONE (17:15)
[2022-09-08] MEDS ORDERED: PROPOFOL 200 MG/20 ML VIAL ONE (17:15)
[2022-09-08] MEDS ORDERED: HYDROmorphone 2 MG/ML VIAL SLOW IVP PRN (17:49)
[2022-09-08 20:13] VITALS: BMI 46.5
[2022-09-08] MEDS ORDERED: Vancomycin 1 GM in Premix Bag 1 BAG IVPB SCH (21:00)
[2022-09-08] MEDS: Vancomycin 1.5 GRAM/300 ML BAG 1.5 GM in Premix Bag 1 BAG IVPB SCH (21:06)
[2022-09-08] MEDS: Morphine 4 MG/ML VIAL SLOW IVP PRN (21:06)
[2022-09-08] MEDS: Aspirin 81 mg Enteric Coated Tablet PO SCH (21:06)
[2022-09-08] MEDS ORDERED: Gentamicin Sulfate 100 MG in Premix Bag 1 BAG IVPB SCH (22:00)
[2022-09-08] MEDS ORDERED: Gentamicin 80 MG/2 ML VIAL IVPB SCH (22:00)
[2022-09-09 05:31] LABS: Hemoglobin 9.3 g/dL (12.0-16.0); Mean Corpuscular HGB CONC 31.1 g/dL (32.0-36.0); Mean Corpuscular Hemoglobin 27.5 pg (27.0-31.0); Mean Corpuscular Volume 88.3 fl (78.0-98.0); Mean Platelet Volume 6.3 fL (7.4-10.4); Platelet Count 468 10x3/uL (130-400); RBC Distribution Width 16.2 % (11.5-14.5); Red Blood Cell (RBC) Count 3.37 mill/uL (4.20-5.40); White Blood Cell (WBC) Count 10.8 10x3/uL (4.8-10.8)
[2022-09-09 05:50] LABS: ALT (SGPT) Less than 7 U/L (8-55); AST (SGOT) 13 U/L (5-34); Albumin 2.7 g/dL (3.5-5.0); Alkaline Phosphatase 98 U/L (40-110); Anion Gap 8 mmol/L (10-20); BUN (Urea Nitrogen) 8 mg/dL (7.0-18.7); Bilirubin, Total 0.5 mg/dL (0.2-1.2); Calc. Creatinine Clearance 149 mL/min (70-130); Calcium 7.8 mg/dL (7.8-10.44); Carbon Dioxide 23 mmol/L (22-29); Chloride 108 mmol/L (98-107); Estimated GFR 91; Globulin 4.2 g/dL (2.4-3.5); Glucose 88 mg/dL (70-105); Potassium 3.1 mmol/L (3.5-5.1); Protein, Total 6.9 g/dL (6.0-8.3); Sodium 136 mmol/L (136-145)
[2022-09-09 05:52] LABS: Band 8 % (5-11); Lymphocytes 5 % (21-51); MDiff Complete? YES; Neutrophil 86 % (42-75)
[2022-09-09] MEDS ORDERED: Potassium Chloride 20 MEQ TAB PO SCH ×2 (08:15→10:15)
[2022-09-09] MEDS: Vancomycin 1.5 GRAM/300 ML BAG 1.5 GM in Premix Bag 1 BAG IVPB SCH ×2 (08:33→20:08)
[2022-09-09] MEDS: Aspirin 81 mg Enteric Coated Tablet PO SCH ×2 (08:33→20:08)
[2022-09-09] MEDS: Morphine 4 MG/ML VIAL SLOW IVP PRN ×3 (08:44→20:07)
[2022-09-09] MEDS ORDERED: FLU VACC QS2022-23(6MO UP)/PF 60 MCG/0.5 ML SYRINGE IM ONE (09:00)
[2022-09-09] MEDS: Nicotine 14 MG PATCH TD PRN (11:28)
[2022-09-09] MEDS: HYDROcodone/Acetaminophen 10/325 mg Tablet PO PRN (12:03)
[2022-09-09 16:42] LABS: Vancomycin, Peak 19.6 ug/mL (20.0-40.0)
[2022-09-10] MEDS: HYDROcodone/Acetaminophen 5/325 mg Tablet PO PRN (05:45)
[2022-09-10 07:39] LABS: Anion Gap 10 mmol/L (10-20); BUN (Urea Nitrogen) 4 mg/dL (7.0-18.7); Calc. Creatinine Clearance 171 mL/min (70-130); Calcium 8.2 mg/dL (7.8-10.44); Carbon Dioxide 23 mmol/L (22-29); Chloride 109 mmol/L (98-107); Estimated GFR 107; Glucose 85 mg/dL (70-105); Potassium 3.9 mmol/L (3.5-5.1); Sodium 138 mmol/L (136-145)
[2022-09-10] MEDS: Vancomycin 1.5 GRAM/300 ML BAG 1.5 GM in Premix Bag 1 BAG IVPB SCH ×2 (08:09→20:37)
[2022-09-10] MEDS: Aspirin 81 mg Enteric Coated Tablet PO SCH ×2 (08:09→20:38)
[2022-09-10 08:50] LABS: Vancomycin, Trough 12.9 ug/mL
[2022-09-10] MEDS: HYDROcodone/Acetaminophen 10/325 mg Tablet PO PRN (13:19)
[2022-09-10] MEDS: Morphine 4 MG/ML VIAL SLOW IVP PRN (19:13)
[2022-09-10] MEDS: Gentamicin Sulfate 100 MG in Premix Bag 1 BAG IVPB SCH (23:22)
[2022-09-11] MEDS: Gentamicin Sulfate 100 MG in Premix Bag 1 BAG IVPB SCH ×2 (05:09→13:21)
[2022-09-11] MEDS: HYDROcodone/Acetaminophen 5/325 mg Tablet PO PRN (05:16)
[2022-09-11] MEDS: Vancomycin 1.5 GRAM/300 ML BAG 1.5 GM in Premix Bag 1 BAG IVPB SCH ×2 (07:57→21:08)
[2022-09-11] MEDS: Aspirin 81 mg Enteric Coated Tablet PO SCH ×2 (07:57→21:08)
[2022-09-11] MEDS ORDERED: HYDROmorphone 0.5 MG/0.5 ML SYRINGE SLOW IVP SCH (10:00)
[2022-09-11] MEDS: Nicotine 14 MG PATCH TD PRN (11:09)
[2022-09-11] MEDS: Morphine 4 MG/ML VIAL SLOW IVP PRN (17:03)
[2022-09-11] MEDS: HYDROcodone/Acetaminophen 10/325 mg Tablet PO PRN (21:08)
[2022-09-12] MEDS: Gentamicin Sulfate 100 MG in Premix Bag 1 BAG IVPB SCH (00:18)
[2022-09-12] MEDS ORDERED: Bacitracin Zinc Ointment 30 gm TUBE ONE (07:16)
[2022-09-12] MEDS ORDERED: Bupivacaine PF 0.5% 30 ML VIAL ONE (07:16)
[2022-09-12] MEDS ORDERED: Thrombin 5000 UNITS/5 ML VIAL ONE (07:16)
[2022-09-12] MEDS ORDERED: Neomycin-Polymyxin 1 ML AMP ONE (07:16)
[2022-09-12] MEDS ORDERED: fentaNYL PF 100 MCG/2 ML SYRINGE ONE (07:41)
[2022-09-12] MEDS ORDERED: Dexmedetomidine 200 MCG/2 ML VIAL ONE (07:42)
[2022-09-12] MEDS ORDERED: Dexamethasone 20 MG/5 ML VIAL ONE (08:10)
[2022-09-12] MEDS ORDERED: PROPOFOL 200 MG/20 ML VIAL ONE (08:10)
[2022-09-12] MEDS ORDERED: Lidocaine 1% PF 5 ML VIAL ONE (08:10)
[2022-09-12] MEDS ORDERED: Ondansetron PF 4 MG/2 ML Vial ONE (08:10)
[2022-09-12] MEDS: Aspirin 81 mg Enteric Coated Tablet PO SCH (08:53)
[2022-09-12] MEDS ORDERED: Fentanyl 100 MCG/2 ML VIAL ONE (09:06)
[2022-09-12] MEDS ORDERED: Ketorolac Tromethamine 30 MG/ML VIAL ONE (09:11)
[2022-09-12 12:12] VITALS: BP 96/62; TEMP 98
[2022-09-12] MEDS: HYDROcodone/Acetaminophen 10/325 mg Tablet PO PRN (12:34)
== END 2022-09-12 15:30 | disposition home or self-care (01) | DRG 982 ==
LOC: ERS 12:18 → SDC/OP 17:06 → SURG A 18:53
PROVIDERS: ADMIT Orthopaedic Surgery Hand Surgery; ATTEND Internal Medicine
PROC: 0L970ZZ Drainage of Right Hand Tendon, Open Approach (ICD-10-PCS; principal; 2022-09-08)
PROC: 0LB70ZZ Excision of Right Hand Tendon, Open Approach (ICD-10-PCS; 2022-09-12)
DX: L03.011 Cellulitis of right finger (principal); Z68.42 Body mass index [BMI] 45.0-49.9, adult; M65.041 Abscess of tendon sheath, right hand; Z20.822 Contact with and (suspected) exposure to COVID-19; L73.2 Hidradenitis suppurativa; L20.9 Atopic dermatitis, unspecified; F17.210 Nicotine dependence, cigarettes, uncomplicated; E87.6 Hypokalemia; D64.9 Anemia, unspecified; E66.01 Morbid (severe) obesity due to excess calories; Z28.21 Immunization not carried out because of patient refusal; Z90.710 Acquired absence of both cervix and uterus; Z98.890 Other specified postprocedural states; Z71.6 Tobacco abuse counseling
CPT/HCPCS: 36415; 80048; 80053; 80170; 80202; 83605; 85025; 85652; 86140; 87040; 87070; 87205; 96374; J1100; J1170; J1580; J1885; J2001; J2270; J2405; J2704; J3010; J3370; J3490; S0020; S0028; U0002

== ENCOUNTER 2023-02-08 07:10 | Inpatient (IN) | payer OTHER, MEDICAID ==
[2023-02-08] MEDS ORDERED: Ketorolac Tromethamine 30 MG/ML VIAL ONE (07:37)
[2023-02-08] MEDS ORDERED: Vancomycin 1.5 GRAM/300 ML BAG 1.5 GM in Premix Bag 1 BAG IVPB SCH (07:45)
[2023-02-08] MEDS ORDERED: Clindamycin/D5W 600 mg/50 ml Premix Bag ONE (07:49)
[2023-02-08] MEDS ORDERED: Clindamycin/D5W 300 MG/50 ML BAG ONE (07:50)
[2023-02-08 08:08] LABS: #Eosinphils 0.2 thou/uL (0.0-0.7); #Monocytes 0.8 thou/uL (0.11-0.59); %Basophils 0.4 % (0.0-1.0); %Eosinophils 2.3 % (0.0-10.0); %Lymphocytes 28.5 % (21.0-51.0); %Monocytes 7.7 % (0.0-10.0); %Neutrophils 60.8 % (42.0-75.0); Hemoglobin 10.5 g/dL (12.0-16.0); Mean Corpuscular HGB CONC 31.7 g/dL (32.0-36.0); Mean Corpuscular Hemoglobin 27.7 pg (27.0-31.0); Mean Corpuscular Volume 87.3 fl (78.0-98.0); Mean Platelet Volume 8.8 fL (7.4-10.4); Platelet Count 496 10x3/uL (130-400); RBC Distribution Width 17.2 % (11.5-14.5); Red Blood Cell (RBC) Count 3.79 mill/uL (4.20-5.40); White Blood Cell (WBC) Count 9.8 10x3/uL (4.8-10.8)
[2023-02-08 08:32] LABS: ALT (SGPT) 11 U/L (8-55); AST (SGOT) 12 U/L (5-34); Albumin 3.3 g/dL (3.5-5.0); Alkaline Phosphatase 98 U/L (40-110); Anion Gap 16 mmol/L (10-20); BUN (Urea Nitrogen) 8 mg/dL (7.0-18.7); Bilirubin, Total Less than 0.2 mg/dL (0.2-1.2); Calc. Creatinine Clearance 0 mL/min (70-130); Calcium 8.8 mg/dL (7.8-10.44); Carbon Dioxide 22 mmol/L (22-29); Chloride 106 mmol/L (98-107); Estimated GFR 101; Globulin 4.7 g/dL (2.4-3.5); Glucose 88 mg/dL (70-105); Potassium 4.1 mmol/L (3.5-5.1); Sodium 140 mmol/L (136-145)
[2023-02-08 09:37] LABS: Bacteria/HPF 1+ HPF (None Seen); Bilirubin Negative (Negative); Blood, Urine 1+ (Negative); CAUTI Indications for Culture Dysuria,urgency,freq; Clarity Clear (Clear); Glucose, Urine (Dipstick) Normal (Negative); Ketone, Urine Negative (Negative); Leukocyte 500 Leu/uL (Negative); Nitrite Negative (Negative); Protein, Urine (Dipstick) Negative (Neg-Trace); Specific Gravity, Urine 1.013 (1.002-1.036); Squamous Epithelial 0-3 HPF (0-3); Urobilinogen Normal mg/dL (Less than 2); pH, Urine 6.5 (5.0-9.0)
[2023-02-08 09:38] LABS: Urine Culture Reflex Yes Yes
[2023-02-08 12:35] VITALS: BMI 47.2
[2023-02-08] MEDS ORDERED: Senokot S 8.6-50 MG TAB PO PRN (12:41)
[2023-02-08] MEDS ORDERED: Ondansetron ODT 4 MG TAB PO PRN (12:41)
[2023-02-08] MEDS ORDERED: HYDROcodone/Acetaminophen 5/325 mg Tablet PO PRN (12:41)
[2023-02-08] MEDS ORDERED: Vancomycin 1 GM in Premix Bag 1 BAG IVPB SCH (12:45)
[2023-02-08] MEDS ORDERED: VANCOMYCIN IVPB PRN (13:24)
[2023-02-08] MEDS: HYDROcodone/Acetaminophen 5/325 mg Tablet PO PRN ×2 (14:23→21:19)
[2023-02-08] MEDS: Vancomycin HCl 750 MG in Sodium Chloride 0.9% 250 ML 250 ML IVPB SCH ×2 (14:23→21:10)
[2023-02-08] MEDS ORDERED: Piperacillin/Tazobactam 3.375 GM in Sodium Chloride 0.9% 100 ML IVPB SCH (17:30)
[2023-02-08] MEDS ORDERED: Clindamycin/D5W 600 MG in Premix Bag 1 BAG IVPB SCH (18:00)
[2023-02-08] MEDS: Acetaminophen 325 MG TAB PO PRN (18:26)
[2023-02-08] MEDS ORDERED: Acetaminophen 325 MG TAB PO PRN (18:29)
[2023-02-08] MEDS: Piperacillin/Tazobactam 3.375 GM in Sodium Chloride 0.9% 100 ML IVPB SCH (21:23)
[2023-02-09] MEDS: Nicotine 21 MG PATCH TOP SCH (00:24)
[2023-02-09] MEDS ORDERED: Sevoflurane 250 ML INH ANEST BOTTLE ONE (04:39)
[2023-02-09] MEDS: Vancomycin HCl 750 MG in Sodium Chloride 0.9% 250 ML 250 ML IVPB SCH ×3 (05:11→18:49)
[2023-02-09] MEDS: Piperacillin/Tazobactam 3.375 GM in Sodium Chloride 0.9% 100 ML IVPB SCH ×3 (06:17→21:13)
[2023-02-09] MEDS: Lactated Ringer's 1,000 ML IV SCH ×3 (08:25→21:14)
[2023-02-09] MEDS: Saccharomyces boulardii 250 MG CAP PO SCH (08:25)
[2023-02-09] MEDS: Acetaminophen 325 MG TAB PO PRN (08:25)
[2023-02-09 11:39] LABS: #Basophils 0.1 thou/uL (0.0-0.2); #Eosinphils 0.2 thou/uL (0.0-0.7); #Monocytes 0.4 thou/uL (0.11-0.59); #Neutrophils 8.1 thou/uL (1.40-6.50); %Basophils 0.5 % (0.0-1.0); %Eosinophils 1.9 % (0.0-10.0); %Lymphocytes 12.7 % (21.0-51.0); %Monocytes 3.5 % (0.0-10.0); %Neutrophils 81.1 % (42.0-75.0); Hemoglobin 10.2 g/dL (12.0-16.0); Mean Corpuscular HGB CONC 30.8 g/dL (32.0-36.0); Mean Corpuscular Hemoglobin 27.7 pg (27.0-31.0); Mean Corpuscular Volume 89.9 fl (78.0-98.0); Mean Platelet Volume 8.3 fL (7.4-10.4); Platelet Count 327 10x3/uL (130-400); RBC Distribution Width 17.4 % (11.5-14.5); Red Blood Cell (RBC) Count 3.68 mill/uL (4.20-5.40)
[2023-02-09 12:00] LABS: Anion Gap 15 mmol/L (10-20); BUN (Urea Nitrogen) 7 mg/dL (7.0-18.7); Calc. Creatinine Clearance 152 mL/min (70-130); Calcium 8.5 mg/dL (7.8-10.44); Carbon Dioxide 19 mmol/L (22-29); Chloride 108 mmol/L (98-107); Estimated GFR 92; Glucose 78 mg/dL (70-105); Potassium 3.9 mmol/L (3.5-5.1); Sodium 138 mmol/L (136-145)
[2023-02-09 14:10] LABS: Vancomycin, Trough 12.9 ug/mL
[2023-02-09] MEDS ORDERED: HYDROmorphone 0.5 MG/0.5 ML SYRINGE ONE (14:26)
[2023-02-09] MEDS ORDERED: Midazolam HCl 2 mg/2 ml Vial ONE (14:26)
[2023-02-09] MEDS ORDERED: fentaNYL PF 100 MCG/2 ML SYRINGE ONE ×2 (14:26→15:35)
[2023-02-09] MEDS ORDERED: PROPOFOL 200 MG/20 ML VIAL ONE (14:40)
[2023-02-09] MEDS ORDERED: Ondansetron PF 4 MG/2 ML Vial ONE (14:40)
[2023-02-09] MEDS ORDERED: Dexamethasone 20 MG/5 ML VIAL ONE (14:40)
[2023-02-09] MEDS ORDERED: Lidocaine 1% PF 5 ML VIAL ONE (14:40)
[2023-02-09] MEDS ORDERED: EPINEPHrine 1 MG/ML AMP ONE (15:23)
[2023-02-09] MEDS ORDERED: Bupivacaine HCl 0.5%/Epinephrine 1:200,000/PF 30 ml Vial ONE (15:23)
[2023-02-09] MEDS ORDERED: Lidocaine 1% (PF) 30 ML VIAL ONE (15:23)
[2023-02-09] MEDS ORDERED: Promethazine HCl 25 MG/ML VIAL IM PRN (17:25)
[2023-02-09] MEDS ORDERED: Ondansetron HCl/PF 4 MG/2 ML Vial IVP PRN (17:25)
[2023-02-09] MEDS ORDERED: PACU-Morphine 4MG/ML VIAL SLOW IVP PRN (17:25)
[2023-02-09] MEDS ORDERED: fentaNYL 50 mcg/mL 1 mL Vial ONE ×3 (17:38→18:16)
[2023-02-09] MEDS ORDERED: Ketorolac Tromethamine 30 MG/ML VIAL ONE (17:54)
[2023-02-09] MEDS: Ketorolac Tromethamine 30 MG/ML VIAL IVP SCH (17:58)
[2023-02-09] MEDS ORDERED: Naloxone HCl 0.4 mg/ml Vial IV PRN (18:00)
[2023-02-09] MEDS ORDERED: Morphine Sulfate 100 MG in Dextrose 5% in Water 98 ML IV SCH (18:00)
[2023-02-09] MEDS: Ondansetron PF 4 MG/2 ML Vial IVP PRN (21:13)
[2023-02-09] MEDS: Gabapentin 300 MG CAP PO SCH (21:14)
[2023-02-10] MEDS: Vancomycin HCl 750 MG in Sodium Chloride 0.9% 250 ML 250 ML IVPB SCH ×3 (00:20→17:48)
[2023-02-10] MEDS: Nicotine 21 MG PATCH TOP SCH ×2 (00:20→20:07)
[2023-02-10] MEDS: Ketorolac Tromethamine 30 MG/ML VIAL IVP SCH ×4 (00:22→17:48)
[2023-02-10] MEDS ORDERED: Lactated Ringer's 1,000 ML IV SCH (03:45)
[2023-02-10] MEDS: Lactated Ringer's 1,000 ML IV SCH (03:49)
[2023-02-10] MEDS: Piperacillin/Tazobactam 3.375 GM in Sodium Chloride 0.9% 100 ML IVPB SCH ×3 (05:38→20:07)
[2023-02-10 06:18] LABS: Hemoglobin 8.2 g/dL (12.0-16.0); Mean Corpuscular HGB CONC 30.9 g/dL (32.0-36.0); Mean Corpuscular Hemoglobin 27.4 pg (27.0-31.0); Mean Corpuscular Volume 88.6 fl (78.0-98.0); Mean Platelet Volume 8.8 fL (7.4-10.4); Platelet Count 278 10x3/uL (130-400); RBC Distribution Width 17.3 % (11.5-14.5); Red Blood Cell (RBC) Count 2.99 mill/uL (4.20-5.40); White Blood Cell (WBC) Count 8.3 10x3/uL (4.8-10.8)
[2023-02-10 06:36] LABS: Anion Gap 13 mmol/L (10-20); BUN (Urea Nitrogen) 9 mg/dL (7.0-18.7); Calc. Creatinine Clearance 154 mL/min (70-130); Calcium 8.3 mg/dL (7.8-10.44); Carbon Dioxide 22 mmol/L (22-29); Chloride 110 mmol/L (98-107); Estimated GFR 93; Glucose 90 mg/dL (70-105); Potassium 4.2 mmol/L (3.5-5.1); Sodium 141 mmol/L (136-145)
[2023-02-10 06:45] LABS: Delete Auto Diff?? YES; Manual Diff?? YES
[2023-02-10 07:20] LABS: Band 11 % (5-11); CellaVision Operator ID LAB.GE; Eosinophils 2 % (0-10); Lymphocytes 13 % (21-51); Monocytes 5 % (0-10); Neutrophil 65 % (42-75); Platelet Adequacy Comment Platelets Normal; Polychromasia SLIGHT = 2-3 cells HPF (0-2); Reactive Lymphocytes 1 % (0-10); Total Cell Count 101
[2023-02-10] MEDS: Saccharomyces boulardii 250 MG CAP PO SCH (08:43)
[2023-02-10] MEDS: Gabapentin 300 MG CAP PO SCH ×3 (08:43→20:06)
[2023-02-10 15:28] LABS: Vancomycin, Trough 17.3 ug/mL
[2023-02-11] MEDS: Ketorolac Tromethamine 30 MG/ML VIAL IVP SCH ×3 (00:16→12:36)
[2023-02-11] MEDS: Vancomycin HCl 750 MG in Sodium Chloride 0.9% 250 ML 250 ML IVPB SCH ×4 (00:16→23:08)
[2023-02-11] MEDS: Piperacillin/Tazobactam 3.375 GM in Sodium Chloride 0.9% 100 ML IVPB SCH ×3 (05:48→20:44)
[2023-02-11] MEDS: Saccharomyces boulardii 250 MG CAP PO SCH (09:26)
[2023-02-11] MEDS: Gabapentin 300 MG CAP PO SCH ×3 (09:26→20:43)
[2023-02-11 15:32] LABS: Vancomycin, Trough 18.1 ug/mL
[2023-02-11] MEDS: Nicotine 21 MG PATCH TOP SCH (20:44)
[2023-02-12] MEDS: Piperacillin/Tazobactam 3.375 GM in Sodium Chloride 0.9% 100 ML IVPB SCH ×3 (05:18→21:27)
[2023-02-12 06:09] LABS: #Eosinphils 0.4 thou/uL (0.0-0.7); #Monocytes 0.7 thou/uL (0.11-0.59); #Neutrophils 6.1 thou/uL (1.40-6.50); %Basophils 0.4 % (0.0-1.0); %Eosinophils 4.8 % (0.0-10.0); %Lymphocytes 19.8 % (21.0-51.0); %Monocytes 7.8 % (0.0-10.0); Hemoglobin 7.9 g/dL (12.0-16.0); Mean Corpuscular HGB CONC 29.4 g/dL (32.0-36.0); Mean Corpuscular Hemoglobin 27.3 pg (27.0-31.0); Mean Corpuscular Volume 93.1 fl (78.0-98.0); Mean Platelet Volume 9.3 fL (7.4-10.4); Platelet Count 300 10x3/uL (130-400); RBC Distribution Width 17.6 % (11.5-14.5); Red Blood Cell (RBC) Count 2.89 mill/uL (4.20-5.40); White Blood Cell (WBC) Count 9.1 10x3/uL (4.8-10.8)
[2023-02-12 06:22] LABS: Anion Gap 14 mmol/L (10-20); BUN (Urea Nitrogen) 8 mg/dL (7.0-18.7); Calc. Creatinine Clearance 156 mL/min (70-130); Calcium 8.8 mg/dL (7.8-10.44); Carbon Dioxide 17 mmol/L (22-29); Chloride 111 mmol/L (98-107); Estimated GFR 95; Glucose 89 mg/dL (70-105); Potassium 4.2 mmol/L (3.5-5.1); Sodium 138 mmol/L (136-145)
[2023-02-12] MEDS: Gabapentin 300 MG CAP PO SCH ×3 (07:58→20:39)
[2023-02-12] MEDS: Saccharomyces boulardii 250 MG CAP PO SCH (07:58)
[2023-02-12] MEDS ORDERED: Bupivacaine HCl 0.5%/Epinephrine 1:200,000/PF 30 ml Vial ONE (09:12)
[2023-02-12] MEDS ORDERED: Midazolam HCl 2 mg/2 ml Vial ONE (09:24)
[2023-02-12] MEDS ORDERED: Propofol 500 MG/50 ML VIAL ONE (09:24)
[2023-02-12] MEDS ORDERED: fentaNYL PF 100 MCG/2 ML SYRINGE ONE ×2 (09:24→11:50)
[2023-02-12] MEDS ORDERED: SUGAMMADEX SODIUM 200 MG/2 ML VIAL ONE (09:24)
[2023-02-12] MEDS ORDERED: Dexamethasone 20 MG/5 ML VIAL ONE (09:29)
[2023-02-12] MEDS ORDERED: PROPOFOL 200 MG/20 ML VIAL ONE (09:29)
[2023-02-12] MEDS ORDERED: Ondansetron PF 4 MG/2 ML Vial ONE (09:29)
[2023-02-12] MEDS ORDERED: Ketorolac Tromethamine 30 MG/ML VIAL ONE (09:29)
[2023-02-12] MEDS ORDERED: Lidocaine 1% PF 5 ML VIAL ONE (09:29)
[2023-02-12] MEDS ORDERED: HYDROcodone/Acetaminophen 5/325 mg Tablet PO PRN (10:48)
[2023-02-12] MEDS: Vancomycin HCl 750 MG in Sodium Chloride 0.9% 250 ML 250 ML IVPB SCH ×3 (12:01→23:39)
[2023-02-12] MEDS: Morphine 2 MG/ML VIAL SLOW IVP PRN ×2 (13:43→20:41)
[2023-02-12] MEDS: HYDROcodone/Acetaminophen 5/325 mg Tablet PO PRN ×2 (15:45→20:40)
[2023-02-12] MEDS: Morphine 4 MG/ML VIAL SLOW IVP PRN (19:02)
[2023-02-12] MEDS: Nicotine 21 MG PATCH TOP SCH (21:31)
[2023-02-13] MEDS: Morphine 4 MG/ML VIAL SLOW IVP PRN ×2 (02:00→09:44)
[2023-02-13] MEDS: HYDROcodone/Acetaminophen 5/325 mg Tablet PO PRN ×3 (04:36→12:20)
[2023-02-13] MEDS: Piperacillin/Tazobactam 3.375 GM in Sodium Chloride 0.9% 100 ML IVPB SCH ×2 (05:43→14:04)
[2023-02-13] MEDS: Gabapentin 300 MG CAP PO SCH ×3 (08:33→20:30)
[2023-02-13] MEDS: Vancomycin HCl 750 MG in Sodium Chloride 0.9% 250 ML 250 ML IVPB SCH (08:34)
[2023-02-13] MEDS: Saccharomyces boulardii 250 MG CAP PO SCH (08:34)
[2023-02-13 09:33] LABS: #Basophils 0.1 thou/uL (0.0-0.2); #Eosinphils 0.2 thou/uL (0.0-0.7); #Monocytes 1.3 thou/uL (0.11-0.59); #Neutrophils 7.6 thou/uL (1.40-6.50); %Basophils 0.5 % (0.0-1.0); %Eosinophils 1.2 % (0.0-10.0); %Lymphocytes 23.8 % (21.0-51.0); %Monocytes 10.8 % (0.0-10.0); %Neutrophils 62.2 % (42.0-75.0); Hemoglobin 7.1 g/dL (12.0-16.0); Mean Corpuscular HGB CONC 30.5 g/dL (32.0-36.0); Mean Corpuscular Hemoglobin 27.5 pg (27.0-31.0); Mean Corpuscular Volume 90.3 fl (78.0-98.0); Mean Platelet Volume 9.1 fL (7.4-10.4); Platelet Count 371 10x3/uL (130-400); RBC Distribution Width 17.3 % (11.5-14.5); Red Blood Cell (RBC) Count 2.58 mill/uL (4.20-5.40); White Blood Cell (WBC) Count 12.3 10x3/uL (4.8-10.8)
[2023-02-13] MEDS ORDERED: Lidocaine 4% Topical Sol 50 ML BOT TOP SCH (09:45)
[2023-02-13 10:07] LABS: Anion Gap 11 mmol/L (10-20); BUN (Urea Nitrogen) 12 mg/dL (7.0-18.7); Calc. Creatinine Clearance 72 mL/min (70-130); Calcium 8.4 mg/dL (7.8-10.44); Carbon Dioxide 22 mmol/L (22-29); Chloride 108 mmol/L (98-107); Estimated GFR 37; Glucose 114 mg/dL (70-105); Potassium 4.4 mmol/L (3.5-5.1); Sodium 137 mmol/L (136-145)
[2023-02-13] MEDS ORDERED: Morphine 4 MG/ML VIAL SLOW IVP PRN (11:13)
[2023-02-13] MEDS ORDERED: Morphine 2 MG/ML VIAL SLOW IVP SCH (11:30)
[2023-02-13] MEDS ORDERED: Acetaminophen 500 MG TAB PO SCH (17:00)
[2023-02-13] MEDS: Acetaminophen 500 MG TAB PO SCH (20:29)
[2023-02-13] MEDS: Amoxicillin/Potassium Clav 500 MG TAB PO SCH (20:30)
[2023-02-13] MEDS: Nicotine 21 MG PATCH TOP SCH (20:31)
[2023-02-13] MEDS: traMADol HCl 50 MG TAB PO PRN (20:31)
[2023-02-13] MEDS: Morphine 2 MG/ML VIAL SLOW IVP PRN (23:28)
[2023-02-14] MEDS: Polyethylene Glycol 3350 17 GM Packet PO SCH (08:38)
[2023-02-14] MEDS: Saccharomyces boulardii 250 MG CAP PO SCH (08:38)
[2023-02-14 08:39] LABS: Chloride 109 mmol/L (98-107); Potassium 4.3 mmol/L (3.5-5.1); Sodium 138 mmol/L (136-145)
[2023-02-14] MEDS: Acetaminophen 500 MG TAB PO SCH ×4 (08:39→22:11)
[2023-02-14 08:40] LABS: Calcium 8.6 mg/dL (7.8-10.44); Glucose 89 mg/dL (70-105)
[2023-02-14] MEDS: Amoxicillin/Potassium Clav 500 MG TAB PO SCH ×2 (08:40→20:26)
[2023-02-14] MEDS: Methylcellulose 500 MG TAB PO SCH (08:40)
[2023-02-14] MEDS: Gabapentin 300 MG CAP PO SCH ×3 (08:40→20:27)
[2023-02-14 08:42] LABS: Anion Gap 16 mmol/L (10-20); Carbon Dioxide 17 mmol/L (22-29)
[2023-02-14 08:44] LABS: BUN (Urea Nitrogen) 11 mg/dL (7.0-18.7); Calc. Creatinine Clearance 74 mL/min (70-130); Estimated GFR 39
[2023-02-14 13:28] LABS: #Basophils 0.1 thou/uL (0.0-0.2); #Eosinphils 0.3 thou/uL (0.0-0.7); #Monocytes 1.1 thou/uL (0.11-0.59); #Neutrophils 10.1 thou/uL (1.40-6.50); %Basophils 0.4 % (0.0-1.0); %Eosinophils 2.1 % (0.0-10.0); %Lymphocytes 15.8 % (21.0-51.0); %Monocytes 7.9 % (0.0-10.0); %Neutrophils 73.4 % (42.0-75.0); Hemoglobin 7.7 g/dL (12.0-16.0); Mean Corpuscular HGB CONC 29.4 g/dL (32.0-36.0); Mean Corpuscular Hemoglobin 26.9 pg (27.0-31.0); Mean Corpuscular Volume 91.6 fl (78.0-98.0); Mean Platelet Volume 8.9 fL (7.4-10.4); Platelet Count 481 10x3/uL (130-400); RBC Distribution Width 17.5 % (11.5-14.5); Red Blood Cell (RBC) Count 2.86 mill/uL (4.20-5.40); White Blood Cell (WBC) Count 13.8 10x3/uL (4.8-10.8)
[2023-02-14] MEDS: Morphine 2 MG/ML VIAL SLOW IVP PRN ×2 (13:37→18:43)
[2023-02-14] MEDS ORDERED: Doxycycline 100 MG CAP PO SCH ×2 (14:15→21:00)
[2023-02-14] MEDS: Doxycycline 100 MG CAP PO SCH (20:26)
[2023-02-14] MEDS: Nicotine 21 MG PATCH TOP SCH (20:27)
[2023-02-15] MEDS: Acetaminophen 500 MG TAB PO SCH ×4 (04:41→19:47)
[2023-02-15] MEDS: traMADol HCl 50 MG TAB PO PRN ×2 (04:44→12:29)
[2023-02-15] MEDS: Methylcellulose 500 MG TAB PO SCH (08:13)
[2023-02-15] MEDS: Amoxicillin/Potassium Clav 500 MG TAB PO SCH ×2 (08:13→19:45)
[2023-02-15] MEDS: Gabapentin 300 MG CAP PO SCH ×3 (08:14→19:47)
[2023-02-15] MEDS: Doxycycline 100 MG CAP PO SCH ×2 (08:15→19:45)
[2023-02-15] MEDS: Polyethylene Glycol 3350 17 GM Packet PO SCH (08:15)
[2023-02-15] MEDS: Saccharomyces boulardii 250 MG CAP PO SCH (08:15)
[2023-02-15 09:25] LABS: #Basophils 0.1 thou/uL (0.0-0.2); #Eosinphils 0.3 thou/uL (0.0-0.7); #Monocytes 1.3 thou/uL (0.11-0.59); #Neutrophils 11.2 thou/uL (1.40-6.50); %Basophils 0.3 % (0.0-1.0); %Eosinophils 2.1 % (0.0-10.0); %Lymphocytes 17.1 % (21.0-51.0); %Monocytes 8.4 % (0.0-10.0); %Neutrophils 71.6 % (42.0-75.0); Hemoglobin 6.7 g/dL (12.0-16.0); Mean Corpuscular HGB CONC 30.7 g/dL (32.0-36.0); Mean Corpuscular Hemoglobin 27.5 pg (27.0-31.0); Mean Corpuscular Volume 89.3 fl (78.0-98.0); Mean Platelet Volume 8.7 fL (7.4-10.4); Platelet Count 508 10x3/uL (130-400); RBC Distribution Width 17.7 % (11.5-14.5); Red Blood Cell (RBC) Count 2.44 mill/uL (4.20-5.40); White Blood Cell (WBC) Count 15.7 10x3/uL (4.8-10.8)
[2023-02-15 09:44] LABS: Anion Gap 11 mmol/L (10-20); BUN (Urea Nitrogen) 15 mg/dL (7.0-18.7); Calc. Creatinine Clearance 80 mL/min (70-130); Calcium 8.8 mg/dL (7.8-10.44); Carbon Dioxide 25 mmol/L (22-29); Chloride 110 mmol/L (98-107); Estimated GFR 42; Glucose 93 mg/dL (70-105); Potassium 4.4 mmol/L (3.5-5.1); Sodium 142 mmol/L (136-145)
[2023-02-15] MEDS: Morphine 2 MG/ML VIAL SLOW IVP PRN ×2 (13:49→19:48)
[2023-02-16] MEDS: Nicotine 21 MG PATCH TOP SCH ×2 (00:44→23:24)
[2023-02-16 07:07] LABS: #Eosinphils 0.3 thou/uL (0.0-0.7); #Monocytes 0.8 thou/uL (0.11-0.59); #Neutrophils 9.3 thou/uL (1.40-6.50); %Basophils 0.3 % (0.0-1.0); %Eosinophils 2.6 % (0.0-10.0); %Lymphocytes 18.9 % (21.0-51.0); %Monocytes 6.4 % (0.0-10.0); %Neutrophils 71.3 % (42.0-75.0); Hemoglobin 6.4 g/dL (12.0-16.0); Mean Corpuscular HGB CONC 29.4 g/dL (32.0-36.0); Mean Corpuscular Hemoglobin 27.1 pg (27.0-31.0); Mean Platelet Volume 8.8 fL (7.4-10.4); Platelet Count 569 10x3/uL (130-400); RBC Distribution Width 17.8 % (11.5-14.5); Red Blood Cell (RBC) Count 2.36 mill/uL (4.20-5.40)
[2023-02-16 07:26] LABS: Anion Gap 15 mmol/L (10-20); BUN (Urea Nitrogen) 13 mg/dL (7.0-18.7); Calc. Creatinine Clearance 86 mL/min (70-130); Carbon Dioxide 20 mmol/L (22-29); Chloride 106 mmol/L (98-107); Estimated GFR 46; Glucose 82 mg/dL (70-105); Potassium 4.7 mmol/L (3.5-5.1); Sodium 136 mmol/L (136-145)
[2023-02-16 07:32] LABS: Mean Corpuscular Volume 92.4 fl (78.0-98.0)
[2023-02-16] MEDS: Polyethylene Glycol 3350 17 GM Packet PO SCH (08:20)
[2023-02-16] MEDS: Saccharomyces boulardii 250 MG CAP PO SCH (08:20)
[2023-02-16] MEDS: Gabapentin 300 MG CAP PO SCH ×3 (08:20→20:08)
[2023-02-16] MEDS: Amoxicillin/Potassium Clav 500 MG TAB PO SCH ×2 (08:20→20:07)
[2023-02-16] MEDS: Methylcellulose 500 MG TAB PO SCH (08:20)
[2023-02-16] MEDS: Doxycycline 100 MG CAP PO SCH ×2 (08:20→20:07)
[2023-02-16] MEDS: Acetaminophen 500 MG TAB PO SCH ×4 (08:21→20:09)
[2023-02-16] MEDS: Morphine 2 MG/ML VIAL SLOW IVP PRN ×3 (10:29→23:25)
[2023-02-16] MEDS ORDERED: Morphine 4 MG/ML VIAL SLOW IVP SCH (10:45)
[2023-02-16] MEDS: traMADol HCl 50 MG TAB PO PRN ×2 (14:12→20:08)
[2023-02-17] MEDS: traMADol HCl 50 MG TAB PO PRN ×4 (09:50→21:12)
[2023-02-17] MEDS: Methylcellulose 500 MG TAB PO SCH (09:50)
[2023-02-17] MEDS: Amoxicillin/Potassium Clav 500 MG TAB PO SCH ×2 (09:50→21:18)
[2023-02-17] MEDS: Morphine 2 MG/ML VIAL SLOW IVP PRN (09:51)
[2023-02-17] MEDS: Polyethylene Glycol 3350 17 GM Packet PO SCH (09:52)
[2023-02-17] MEDS: Gabapentin 300 MG CAP PO SCH ×3 (09:52→21:12)
[2023-02-17] MEDS: Doxycycline 100 MG CAP PO SCH ×2 (09:52→21:13)
[2023-02-17] MEDS: Acetaminophen 500 MG TAB PO SCH ×4 (09:52→21:13)
[2023-02-17] MEDS: Saccharomyces boulardii 250 MG CAP PO SCH (09:52)
[2023-02-17] MEDS ORDERED: Morphine 4 MG/ML VIAL SLOW IVP SCH (10:15)
[2023-02-17 12:04] LABS: #Eosinphils 0.4 thou/uL (0.0-0.7); #Monocytes 0.9 thou/uL (0.11-0.59); #Neutrophils 11.5 thou/uL (1.40-6.50); %Basophils 0.3 % (0.0-1.0); %Eosinophils 2.7 % (0.0-10.0); %Lymphocytes 11.8 % (21.0-51.0); %Neutrophils 78.7 % (42.0-75.0); Hemoglobin 8.5 g/dL (12.0-16.0); Mean Corpuscular HGB CONC 32.7 g/dL (32.0-36.0); Mean Corpuscular Hemoglobin 28.3 pg (27.0-31.0); Mean Corpuscular Volume 86.7 fl (78.0-98.0); Mean Platelet Volume 8.6 fL (7.4-10.4); Platelet Count 654 10x3/uL (130-400); RBC Distribution Width 16.3 % (11.5-14.5); White Blood Cell (WBC) Count 14.6 10x3/uL (4.8-10.8)
[2023-02-17] MEDS: Nicotine 21 MG PATCH TOP SCH (21:11)
[2023-02-18] MEDS: Amoxicillin/Potassium Clav 500 MG TAB PO SCH ×2 (09:04→21:23)
[2023-02-18] MEDS: Doxycycline 100 MG CAP PO SCH ×2 (09:04→21:23)
[2023-02-18] MEDS: Saccharomyces boulardii 250 MG CAP PO SCH (09:04)
[2023-02-18] MEDS: Acetaminophen 500 MG TAB PO SCH ×4 (09:04→21:22)
[2023-02-18] MEDS: Methylcellulose 500 MG TAB PO SCH (09:04)
[2023-02-18] MEDS: Gabapentin 300 MG CAP PO SCH ×3 (09:05→21:23)
[2023-02-18] MEDS: Polyethylene Glycol 3350 17 GM Packet PO SCH (09:06)
[2023-02-18] MEDS: traMADol HCl 50 MG TAB PO PRN (09:08)
[2023-02-18 09:32] LABS: #Basophils 0.1 thou/uL (0.0-0.2); #Eosinphils 0.4 thou/uL (0.0-0.7); #Monocytes 0.6 thou/uL (0.11-0.59); #Neutrophils 10.4 thou/uL (1.40-6.50); %Basophils 0.4 % (0.0-1.0); %Lymphocytes 16.3 % (21.0-51.0); %Monocytes 4.6 % (0.0-10.0); %Neutrophils 75.3 % (42.0-75.0); Mean Corpuscular Hemoglobin 28.3 pg (27.0-31.0); Mean Platelet Volume 8.5 fL (7.4-10.4); Platelet Count 711 10x3/uL (130-400); RBC Distribution Width 16.8 % (11.5-14.5); Red Blood Cell (RBC) Count 3.18 mill/uL (4.20-5.40); White Blood Cell (WBC) Count 13.8 10x3/uL (4.8-10.8)
[2023-02-18 09:42] LABS: Mean Corpuscular Volume 91.2 fl (78.0-98.0)
[2023-02-18 09:53] LABS: Anion Gap 14 mmol/L (10-20); BUN (Urea Nitrogen) 24 mg/dL (7.0-18.7); Calc. Creatinine Clearance 84 mL/min (70-130); Calcium 9.5 mg/dL (7.8-10.44); Carbon Dioxide 25 mmol/L (22-29); Chloride 104 mmol/L (98-107); Estimated GFR 45; Glucose 112 mg/dL (70-105); Potassium 4.8 mmol/L (3.5-5.1); Sodium 138 mmol/L (136-145)
[2023-02-18] MEDS ORDERED: Lidocaine 4% Topical Sol 50 ML BOT TOP PRN (10:00)
[2023-02-18] MEDS ORDERED: Morphine 4 MG/ML VIAL SLOW IVP SCH (10:30)
[2023-02-18] MEDS: Morphine 2 MG/ML VIAL SLOW IVP PRN ×2 (11:11→21:28)
[2023-02-18] MEDS: Benzonatate 100 MG CAP PO PRN (13:31)
[2023-02-18] MEDS: Ondansetron PF 4 MG/2 ML Vial IVP PRN (13:51)
[2023-02-18] MEDS: Nicotine 21 MG PATCH TOP SCH (21:25)
[2023-02-19] MEDS ORDERED: Morphine 4 MG/ML VIAL SLOW IVP SCH (08:00)
[2023-02-19] MEDS: Gabapentin 300 MG CAP PO SCH ×3 (08:55→20:12)
[2023-02-19] MEDS: Acetaminophen 500 MG TAB PO SCH ×4 (08:55→20:12)
[2023-02-19] MEDS: Methylcellulose 500 MG TAB PO SCH (08:56)
[2023-02-19] MEDS: Amoxicillin/Potassium Clav 500 MG TAB PO SCH ×2 (08:56→20:12)
[2023-02-19] MEDS: Doxycycline 100 MG CAP PO SCH ×2 (08:56→20:12)
[2023-02-19] MEDS: Saccharomyces boulardii 250 MG CAP PO SCH (08:56)
[2023-02-19] MEDS: Polyethylene Glycol 3350 17 GM Packet PO SCH (08:59)
[2023-02-19 09:40] LABS: #Eosinphils 0.3 thou/uL (0.0-0.7); #Monocytes 0.8 thou/uL (0.11-0.59); #Neutrophils 10.5 thou/uL (1.40-6.50); %Basophils 0.2 % (0.0-1.0); %Eosinophils 2.1 % (0.0-10.0); %Monocytes 5.8 % (0.0-10.0); %Neutrophils 78.5 % (42.0-75.0); Mean Corpuscular HGB CONC 31.1 g/dL (32.0-36.0); Mean Corpuscular Hemoglobin 27.9 pg (27.0-31.0); Mean Corpuscular Volume 89.5 fl (78.0-98.0); Mean Platelet Volume 8.3 fL (7.4-10.4); Platelet Count 718 10x3/uL (130-400); RBC Distribution Width 16.8 % (11.5-14.5); Red Blood Cell (RBC) Count 2.87 mill/uL (4.20-5.40); White Blood Cell (WBC) Count 13.3 10x3/uL (4.8-10.8)
[2023-02-19 10:03] LABS: Anion Gap 13 mmol/L (10-20); BUN (Urea Nitrogen) 19 mg/dL (7.0-18.7); Calc. Creatinine Clearance 92 mL/min (70-130); Calcium 9.3 mg/dL (7.8-10.44); Carbon Dioxide 26 mmol/L (22-29); Chloride 103 mmol/L (98-107); Estimated GFR 50; Glucose 96 mg/dL (70-105); Sodium 137 mmol/L (136-145)
[2023-02-19] MEDS: Morphine 2 MG/ML VIAL SLOW IVP PRN ×2 (10:22→20:11)
[2023-02-19] MEDS: Benzonatate 100 MG CAP PO PRN (14:03)
[2023-02-19] MEDS: Nicotine 21 MG PATCH TOP SCH (20:13)
[2023-02-20 06:23] LABS: #Basophils 0.1 thou/uL (0.0-0.2); #Eosinphils 0.2 thou/uL (0.0-0.7); #Monocytes 0.6 thou/uL (0.11-0.59); #Neutrophils 10.6 thou/uL (1.40-6.50); %Basophils 0.4 % (0.0-1.0); %Eosinophils 1.6 % (0.0-10.0); %Lymphocytes 14.1 % (21.0-51.0); %Monocytes 4.6 % (0.0-10.0); %Neutrophils 78.9 % (42.0-75.0); Hemoglobin 9.4 g/dL (12.0-16.0); Mean Corpuscular HGB CONC 31.1 g/dL (32.0-36.0); Mean Corpuscular Hemoglobin 28.1 pg (27.0-31.0); Mean Corpuscular Volume 90.1 fl (78.0-98.0); Mean Platelet Volume 8.3 fL (7.4-10.4); Red Blood Cell (RBC) Count 3.35 mill/uL (4.20-5.40); White Blood Cell (WBC) Count 13.5 10x3/uL (4.8-10.8)
[2023-02-20 06:33] LABS: Platelet Count 867 10x3/uL (130-400)
[2023-02-20 06:52] LABS: Anion Gap 14 mmol/L (10-20); BUN (Urea Nitrogen) 22 mg/dL (7.0-18.7); Calc. Creatinine Clearance 99 mL/min (70-130); Calcium 9.9 mg/dL (7.8-10.44); Carbon Dioxide 26 mmol/L (22-29); Chloride 104 mmol/L (98-107); Estimated GFR 55; Glucose 91 mg/dL (70-105); Potassium 5.3 mmol/L (3.5-5.1); Sodium 139 mmol/L (136-145)
[2023-02-20] MEDS: Gabapentin 300 MG CAP PO SCH ×3 (08:51→20:50)
[2023-02-20] MEDS: Acetaminophen 500 MG TAB PO SCH ×4 (08:51→20:51)
[2023-02-20] MEDS: Saccharomyces boulardii 250 MG CAP PO SCH (08:52)
[2023-02-20] MEDS: Amoxicillin/Potassium Clav 500 MG TAB PO SCH ×2 (08:52→20:50)
[2023-02-20] MEDS: Methylcellulose 500 MG TAB PO SCH (08:52)
[2023-02-20] MEDS: Polyethylene Glycol 3350 17 GM Packet PO SCH (08:52)
[2023-02-20] MEDS: Doxycycline 100 MG CAP PO SCH ×2 (08:52→20:50)
[2023-02-20] MEDS: Morphine 2 MG/ML VIAL SLOW IVP PRN ×2 (13:21→20:53)
[2023-02-20] MEDS: Morphine 4 MG/ML VIAL SLOW IVP PRN (13:39)
[2023-02-20] MEDS: Nicotine 21 MG PATCH TOP SCH (20:55)
[2023-02-21] MEDS: Morphine 2 MG/ML VIAL SLOW IVP PRN ×2 (06:39→10:43)
[2023-02-21] MEDS: Acetaminophen 500 MG TAB PO SCH ×4 (08:30→20:15)
[2023-02-21] MEDS: Amoxicillin/Potassium Clav 500 MG TAB PO SCH ×2 (08:30→20:15)
[2023-02-21] MEDS: Saccharomyces boulardii 250 MG CAP PO SCH (08:31)
[2023-02-21] MEDS: Gabapentin 300 MG CAP PO SCH ×3 (08:31→20:16)
[2023-02-21] MEDS: Doxycycline 100 MG CAP PO SCH ×2 (08:31→20:16)
[2023-02-21] MEDS: Methylcellulose 500 MG TAB PO SCH (08:31)
[2023-02-21] MEDS: Polyethylene Glycol 3350 17 GM Packet PO SCH (08:31)
[2023-02-21] MEDS: Morphine 4 MG/ML VIAL SLOW IVP PRN (10:40)
[2023-02-22] MEDS: Nicotine 21 MG PATCH TOP SCH ×2 (00:04→22:19)
[2023-02-22] MEDS: Amoxicillin/Potassium Clav 500 MG TAB PO SCH ×2 (09:30→21:39)
[2023-02-22] MEDS: Methylcellulose 500 MG TAB PO SCH (09:30)
[2023-02-22 09:33] LABS: #Basophils 0.1 thou/uL (0.0-0.2); #Eosinphils 0.2 thou/uL (0.0-0.7); #Monocytes 0.6 thou/uL (0.11-0.59); #Neutrophils 7.7 thou/uL (1.40-6.50); %Basophils 0.5 % (0.0-1.0); %Eosinophils 1.6 % (0.0-10.0); %Lymphocytes 20.8 % (21.0-51.0); %Monocytes 5.2 % (0.0-10.0); %Neutrophils 71.6 % (42.0-75.0); Hemoglobin 9.3 g/dL (12.0-16.0); Mean Corpuscular Hemoglobin 28.2 pg (27.0-31.0); Mean Corpuscular Volume 88.2 fl (78.0-98.0); Mean Platelet Volume 8.6 fL (7.4-10.4); Platelet Count 886 10x3/uL (130-400); RBC Distribution Width 16.6 % (11.5-14.5); White Blood Cell (WBC) Count 10.7 10x3/uL (4.8-10.8)
[2023-02-22] MEDS: Acetaminophen 500 MG TAB PO SCH ×5 (09:33→21:26)
[2023-02-22] MEDS: Gabapentin 300 MG CAP PO SCH ×3 (09:33→21:28)
[2023-02-22] MEDS: Polyethylene Glycol 3350 17 GM Packet PO SCH (09:34)
[2023-02-22] MEDS: Doxycycline 100 MG CAP PO SCH ×2 (09:34→21:28)
[2023-02-22] MEDS: Saccharomyces boulardii 250 MG CAP PO SCH (09:34)
[2023-02-22] MEDS: Morphine 4 MG/ML VIAL SLOW IVP PRN (09:44)
[2023-02-22] MEDS: Morphine 2 MG/ML VIAL SLOW IVP PRN (09:50)
[2023-02-22 09:56] LABS: Anion Gap 14 mmol/L (10-20); BUN (Urea Nitrogen) 14 mg/dL (7.0-18.7); Calc. Creatinine Clearance 116 mL/min (70-130); Calcium 9.4 mg/dL (7.8-10.44); Carbon Dioxide 22 mmol/L (22-29); Chloride 104 mmol/L (98-107); Estimated GFR 66; Glucose 97 mg/dL (70-105); Potassium 4.4 mmol/L (3.5-5.1); Sodium 136 mmol/L (136-145)
[2023-02-22] MEDS: Ondansetron PF 4 MG/2 ML Vial IVP PRN (12:25)
[2023-02-23] MEDS: diphenhydrAMINE 25 MG CAP PO SCH (00:40)
[2023-02-23] MEDS: Amoxicillin/Potassium Clav 500 MG TAB PO SCH ×2 (08:19→21:23)
[2023-02-23] MEDS: Saccharomyces boulardii 250 MG CAP PO SCH (08:19)
[2023-02-23] MEDS: Methylcellulose 500 MG TAB PO SCH (08:19)
[2023-02-23] MEDS: Doxycycline 100 MG CAP PO SCH ×2 (08:19→21:23)
[2023-02-23] MEDS: Polyethylene Glycol 3350 17 GM Packet PO SCH (08:20)
[2023-02-23] MEDS: Acetaminophen 500 MG TAB PO SCH ×4 (08:20→21:24)
[2023-02-23] MEDS: Gabapentin 300 MG CAP PO SCH ×3 (08:20→21:23)
[2023-02-23] MEDS: Morphine 2 MG/ML VIAL SLOW IVP PRN ×2 (10:07→23:06)
[2023-02-23] MEDS: Morphine 4 MG/ML VIAL SLOW IVP PRN (10:37)
[2023-02-23] MEDS: Nicotine 21 MG PATCH TOP SCH (21:24)
[2023-02-24] MEDS: diphenhydrAMINE 25 MG CAP PO SCH (00:18)
[2023-02-24 07:50] VITALS: TEMP 98.4
[2023-02-24] MEDS: Gabapentin 300 MG CAP PO SCH (08:29)
[2023-02-24] MEDS: Saccharomyces boulardii 250 MG CAP PO SCH (08:29)
[2023-02-24] MEDS: Methylcellulose 500 MG TAB PO SCH ×2 (08:29→08:33)
[2023-02-24] MEDS: Doxycycline 100 MG CAP PO SCH (08:29)
[2023-02-24] MEDS: Acetaminophen 500 MG TAB PO SCH ×2 (08:29→11:52)
[2023-02-24] MEDS: Polyethylene Glycol 3350 17 GM Packet PO SCH (08:30)
[2023-02-24] MEDS: Morphine 4 MG/ML VIAL SLOW IVP PRN (10:36)
[2023-02-24] MEDS: Morphine 2 MG/ML VIAL SLOW IVP PRN (10:40)
[2023-02-24 13:31] VITALS: BP 103/53
[2023-02-24] MEDS ORDERED: Amoxicillin/Potassium Clav 500 MG TAB PO SCH (21:00)
== END 2023-02-24 13:12 | DRG 571 ==
LOC: ERS 07:10 → T4-B 12:29
PROVIDERS: ADMIT Internal Medicine; ATTEND Internal Medicine
PROC: 0JB90ZZ Excision of Buttock Subcutaneous Tissue and Fascia, Open Approach (ICD-10-PCS; 2023-02-09)
PROC: 0JBM0ZZ Excision of Left Upper Leg Subcutaneous Tissue and Fascia, Open Approach (ICD-10-PCS; 2023-02-09)
PROC: 0JBL0ZZ Excision of Right Upper Leg Subcutaneous Tissue and Fascia, Open Approach (ICD-10-PCS; 2023-02-09)
PROC: 0JBB0ZZ Excision of Perineum Subcutaneous Tissue and Fascia, Open Approach (ICD-10-PCS; 2023-02-09)
PROC: 0HQ9XZZ Repair Perineum Skin, External Approach (ICD-10-PCS; principal; 2023-02-12)
PROC: 30233N1 Transfusion of Nonautologous Red Blood Cells into Peripheral Vein, Percutaneous Approach (ICD-10-PCS; 2023-02-15)
DX: L73.2 Hidradenitis suppurativa (principal); D62 Acute posthemorrhagic anemia; N39.0 Urinary tract infection, site not specified; N17.9 Acute kidney failure, unspecified; Z68.42 Body mass index [BMI] 45.0-49.9, adult; F17.210 Nicotine dependence, cigarettes, uncomplicated; L20.9 Atopic dermatitis, unspecified; E66.01 Morbid (severe) obesity due to excess calories; L03.314 Cellulitis of groin; A60.00 Herpesviral infection of urogenital system, unspecified; N18.2 Chronic kidney disease, stage 2 (mild); J30.2 Other seasonal allergic rhinitis; S31.104A Unspecified open wound of abdominal wall, left lower quadrant without penetration into peritoneal cavity, initial encounter; S31.103A Unspecified open wound of abdominal wall, right lower quadrant without penetration into peritoneal cavity, initial encounter; X58.XXXA Exposure to other specified factors, initial encounter; Z79.2 Long term (current) use of antibiotics; Z90.710 Acquired absence of both cervix and uterus; Z98.890 Other specified postprocedural states; Z71.6 Tobacco abuse counseling; Z98.51 Tubal ligation status; Y92.89 Other specified places as the place of occurrence of the external cause
CPT/HCPCS: 36415; 36416; 36430; 80048; 80053; 80202; 81001; 85025; 86850; 86900; 86901; 87086; 88305; 96365; 96366; 96375; 97139; C1713; J0171; J1100; J1170; J1650; J1885; J2001; J2250; J2270; J2272; J2405; J2543; J2704; J3010; J3370; J3490; J7050; J7120; P9016; P9040

== ENCOUNTER 2023-03-01 14:01 | Inpatient (IN) | payer OTHER, MEDICAID ==
[~2023-03-01 14:01] MED LIST changes: -Iopamidol-370 76% 500 ML 1 ML ONE; +Iopamidol-370 76% 500 ML MDV (1 ML CHARGE) ONE
[2023-03-01] MEDS ORDERED: Piperacillin/Tazobactam 3.375 GM VIAL ONE (15:23)
[2023-03-01] MEDS ORDERED: fentaNYL 50 mcg/mL 1 mL Vial ONE (15:23)
[2023-03-01] MEDS ORDERED: Ondansetron PF 4 MG/2 ML Vial ONE (15:24)
[2023-03-01 15:32] LABS: Hematocrit 31.3 % (36.0-47.0); Hemoglobin 9.9 g/dL (12.0-16.0); Mean Corpuscular HGB CONC 31.6 g/dL (32.0-36.0); Mean Corpuscular Hemoglobin 27.7 pg (27.0-31.0); Mean Corpuscular Volume 87.7 fl (78.0-98.0); Mean Platelet Volume 8.3 fL (7.4-10.4); Platelet Count 533 10x3/uL (130-400); RBC Distribution Width 16.2 % (11.5-14.5); Red Blood Cell (RBC) Count 3.57 mill/uL (4.20-5.40); White Blood Cell (WBC) Count 6.8 10x3/uL (4.8-10.8)
[2023-03-01 15:35] LABS: Delete Auto Diff?? YES; Manual Diff?? YES
[2023-03-01 15:46] LABS: Bacteria/HPF None Seen HPF (None Seen); Bilirubin Negative (Negative); Blood, Urine Trace (Negative); CAUTI Indications for Culture Dysuria,urgency,freq; Clarity Clear (Clear); Glucose, Urine (Dipstick) Normal (Negative); Ketone, Urine Negative (Negative); Leukocyte 25 Leu/uL (Negative); Nitrite Negative (Negative); Protein, Urine (Dipstick) Negative (Neg-Trace); RBC/HPF 0-3 HPF (0-3); Specific Gravity, Urine 1.013 (1.002-1.036); Squamous Epithelial None Seen HPF (0-3); Urobilinogen Normal mg/dL (Less than 2); pH, Urine 6.5 (5.0-9.0)
[2023-03-01 15:51] LABS: Urine Culture Reflex No No
[2023-03-01 15:55] LABS: ALT (SGPT) 11 U/L (8-55); AST (SGOT) 13 U/L (5-34); Albumin 3.3 g/dL (3.5-5.0); Alkaline Phosphatase 93 U/L (40-110); Anion Gap 15 mmol/L (10-20); BUN (Urea Nitrogen) 10 mg/dL (7.0-18.7); Bilirubin, Total 0.3 mg/dL (0.2-1.2); Calc. Creatinine Clearance 0 mL/min (70-130); Calcium 9.1 mg/dL (7.8-10.44); Carbon Dioxide 26 mmol/L (22-29); Chloride 101 mmol/L (98-107); Estimated GFR 82; Globulin 4.8 g/dL (2.4-3.5); Glucose 91 mg/dL (70-105); Potassium 3.8 mmol/L (3.5-5.1); Protein, Total 8.1 g/dL (6.0-8.3); Sodium 138 mmol/L (136-145)
[2023-03-01 15:58] LABS: Anisocytosis SLIGHT = 6-15 cells HPF (0-5); Band 4 % (5-11); CellaVision Operator ID LAB.MJL; Eosinophils 5 % (0-10); Large Platelets 1.7 % (0-5); Lymphocytes 30 % (21-51); Monocytes 3 % (0-10); Neutrophil 56 % (42-75); Platelet Adequacy Comment Platelets Increased; Polychromasia SLIGHT = 2-3 cells HPF (0-2); Reactive Lymphocytes 3 % (0-10); Total Cell Count 115
[2023-03-01] MEDS ORDERED: HYDROcodone/Acetaminophen 5/325 mg Tablet PO PRN (18:59)
[2023-03-01] MEDS ORDERED: Acetaminophen 325 MG TAB PO PRN (18:59)
[2023-03-01] MEDS ORDERED: Ondansetron ODT 4 MG TAB PO PRN (18:59)
[2023-03-01] MEDS: Piperacillin/Tazobactam 3.375 GM in Sodium Chloride 0.9% 100 ML IVPB SCH (21:42)
[2023-03-01] MEDS: Ondansetron PF 4 MG/2 ML Vial IVP PRN (21:42)
[2023-03-01] MEDS: Sodium Chloride 0.9% 1,000 ML IV SCH (21:44)
[2023-03-01 22:09] VITALS: BMI 48.4
[2023-03-01] MEDS ORDERED: VANCOMYCIN 2 GRAM/500 ML BAG 2 GM in Premix Bag 1 BAG IVPB SCH (22:45)
[2023-03-02] MEDS: Sodium Chloride 0.9% 1,000 ML IV SCH ×2 (02:00→19:08)
[2023-03-02] MEDS: Piperacillin/Tazobactam 3.375 GM in Sodium Chloride 0.9% 100 ML IVPB SCH ×3 (05:15→22:30)
[2023-03-02] MEDS ORDERED: SUGAMMADEX SODIUM 200 MG/2 ML VIAL ONE (07:27)
[2023-03-02] MEDS ORDERED: Lidocaine 2% 6 ML (Jelly) SYR ONE (07:27)
[2023-03-02] MEDS ORDERED: Fentanyl 250 MCG/5 ML VIAL ONE (07:27)
[2023-03-02] MEDS ORDERED: Ondansetron PF 4 MG/2 ML Vial ONE (07:34)
[2023-03-02] MEDS ORDERED: Lidocaine 1% PF 5 ML VIAL ONE (07:34)
[2023-03-02] MEDS ORDERED: Glycopyrrolate 0.2 MG/ML 5 ML SYRINGE ONE (07:34)
[2023-03-02] MEDS ORDERED: NEOSTIGMINE 3 MG/3 ML SYR 3 MG/3 ML SYRINGE ONE (07:34)
[2023-03-02] MEDS ORDERED: ePHEDrine Sulfate 50 MG/10 ML VIAL ONE (07:34)
[2023-03-02] MEDS ORDERED: Ketorolac Tromethamine 30 MG/ML VIAL ONE (07:34)
[2023-03-02] MEDS ORDERED: Dexamethasone 20 MG/5 ML VIAL ONE (07:34)
[2023-03-02] MEDS ORDERED: PROPOFOL 200 MG/20 ML VIAL ONE (07:34)
[2023-03-02] MEDS ORDERED: PHENYLEPHRINE-NS 100 MCG/ML 10 ML SYRINGE ONE (07:34)
[2023-03-02] MEDS ORDERED: Rocuronium Bromide 10 MG/ML (10ML VIAL) ONE (07:34)
[2023-03-02] MEDS ORDERED: HYDROmorphone 2 MG/ML VIAL SLOW IVP PRN (08:19)
[2023-03-02] MEDS ORDERED: Promethazine HCl 25 MG/ML VIAL IM PRN (08:19)
[2023-03-02] MEDS ORDERED: Ondansetron HCl/PF 4 MG/2 ML Vial IVP PRN (08:19)
[2023-03-02] MEDS ORDERED: fentaNYL PF 100 MCG/2 ML SYRINGE ONE (08:50)
[2023-03-02] MEDS: Vancomycin HCl 750 MG in Sodium Chloride 0.9% 250 ML 250 ML IVPB SCH ×3 (11:10→19:19)
[2023-03-02] MEDS: Ondansetron PF 4 MG/2 ML Vial IVP PRN (11:22)
[2023-03-02 12:23] LABS: #Monocytes 0.2 thou/uL (0.11-0.59); #Neutrophils 9.3 thou/uL (1.40-6.50); %Basophils 0.2 % (0.0-1.0); %Eosinophils 0.1 % (0.0-10.0); %Lymphocytes 7.5 % (21.0-51.0); %Monocytes 1.8 % (0.0-10.0); %Neutrophils 90.1 % (42.0-75.0); Hematocrit 27.9 % (36.0-47.0); Hemoglobin 8.6 g/dL (12.0-16.0); Mean Corpuscular HGB CONC 30.8 g/dL (32.0-36.0); Mean Platelet Volume 8.1 fL (7.4-10.4); Platelet Count 513 10x3/uL (130-400); RBC Distribution Width 16.7 % (11.5-14.5); Red Blood Cell (RBC) Count 3.07 mill/uL (4.20-5.40); White Blood Cell (WBC) Count 10.3 10x3/uL (4.8-10.8)
[2023-03-02 12:28] LABS: Mean Corpuscular Volume 90.9 fl (78.0-98.0)
[2023-03-02 12:39] LABS: Anion Gap 12 mmol/L (10-20); BUN (Urea Nitrogen) 11 mg/dL (7.0-18.7); Calc. Creatinine Clearance 133 mL/min (70-130); Calcium 8.6 mg/dL (7.8-10.44); Carbon Dioxide 21 mmol/L (22-29); Chloride 110 mmol/L (98-107); Estimated GFR 76; Glucose 100 mg/dL (70-105); Magnesium 1.7 mg/dL (1.6-2.6); Potassium 4.2 mmol/L (3.5-5.1); Sodium 139 mmol/L (136-145)
[2023-03-03] MEDS: Piperacillin/Tazobactam 3.375 GM in Sodium Chloride 0.9% 100 ML IVPB SCH ×3 (03:11→20:10)
[2023-03-03] MEDS: Sodium Chloride 0.9% 1,000 ML IV SCH ×3 (03:14→23:54)
[2023-03-03] MEDS: Vancomycin HCl 750 MG in Sodium Chloride 0.9% 250 ML 250 ML IVPB SCH (03:29)
[2023-03-03] MEDS: HYDROcodone/Acetaminophen 5/325 mg Tablet PO SCH ×3 (09:59→21:20)
[2023-03-03] MEDS: Morphine 2 MG/ML VIAL SLOW IVP PRN ×2 (10:10→19:29)
[2023-03-03 11:03] LABS: #Monocytes 0.7 thou/uL (0.11-0.59); #Neutrophils 4.4 thou/uL (1.40-6.50); %Basophils 0.4 % (0.0-1.0); %Eosinophils 0.3 % (0.0-10.0); %Monocytes 9.4 % (0.0-10.0); %Neutrophils 59.4 % (42.0-75.0); Hematocrit 22.7 % (36.0-47.0); Hemoglobin 7.1 g/dL (12.0-16.0); Mean Corpuscular HGB CONC 31.3 g/dL (32.0-36.0); Mean Corpuscular Hemoglobin 27.6 pg (27.0-31.0); Mean Corpuscular Volume 88.3 fl (78.0-98.0); Mean Platelet Volume 8.9 fL (7.4-10.4); Platelet Count 353 10x3/uL (130-400); RBC Distribution Width 16.7 % (11.5-14.5); Red Blood Cell (RBC) Count 2.57 mill/uL (4.20-5.40); White Blood Cell (WBC) Count 7.4 10x3/uL (4.8-10.8)
[2023-03-03 11:27] LABS: Anion Gap 14 mmol/L (10-20); BUN (Urea Nitrogen) 13 mg/dL (7.0-18.7); Calc. Creatinine Clearance 136 mL/min (70-130); Calcium 8.7 mg/dL (7.8-10.44); Carbon Dioxide 19 mmol/L (22-29); Chloride 109 mmol/L (98-107); Estimated GFR 78; Glucose 91 mg/dL (70-105); Potassium 4.2 mmol/L (3.5-5.1); Sodium 138 mmol/L (136-145)
[2023-03-03] MEDS: Acetaminophen 325 MG TAB PO SCH ×3 (11:53→23:40)
[2023-03-03] MEDS: Ondansetron PF 4 MG/2 ML Vial IVP PRN ×2 (11:53→17:50)
[2023-03-03] MEDS: Ibuprofen 200 MG TAB PO SCH ×2 (15:29→22:37)
[2023-03-04] MEDS: HYDROcodone/Acetaminophen 5/325 mg Tablet PO SCH ×4 (02:29→21:07)
[2023-03-04] MEDS: Piperacillin/Tazobactam 3.375 GM in Sodium Chloride 0.9% 100 ML IVPB SCH ×3 (03:41→21:03)
[2023-03-04] MEDS: Sodium Chloride 0.9% 1,000 ML IV SCH ×2 (03:43→16:29)
[2023-03-04] MEDS: Ibuprofen 200 MG TAB PO SCH ×3 (05:16→21:35)
[2023-03-04] MEDS: Acetaminophen 325 MG TAB PO SCH ×4 (05:16→23:22)
[2023-03-04] MEDS: Morphine 2 MG/ML VIAL SLOW IVP PRN (09:43)
[2023-03-04] MEDS: Lidocaine 4% Topical Sol 50 ML BOT TOP SCH (09:50)
[2023-03-04 11:50] LABS: #Eosinphils 0.2 thou/uL (0.0-0.7); #Monocytes 0.5 thou/uL (0.11-0.59); #Neutrophils 4.9 thou/uL (1.40-6.50); %Basophils 0.5 % (0.0-1.0); %Eosinophils 2.3 % (0.0-10.0); %Lymphocytes 26.6 % (21.0-51.0); %Monocytes 6.6 % (0.0-10.0); %Neutrophils 63.5 % (42.0-75.0); Hematocrit 22.9 % (36.0-47.0); Hemoglobin 7.3 g/dL (12.0-16.0); Mean Corpuscular HGB CONC 31.9 g/dL (32.0-36.0); Mean Corpuscular Hemoglobin 28.3 pg (27.0-31.0); Mean Corpuscular Volume 88.8 fl (78.0-98.0); Mean Platelet Volume 9.2 fL (7.4-10.4); Platelet Count 230 10x3/uL (130-400); RBC Distribution Width 16.9 % (11.5-14.5); Red Blood Cell (RBC) Count 2.58 mill/uL (4.20-5.40); White Blood Cell (WBC) Count 7.8 10x3/uL (4.8-10.8)
[2023-03-04] MEDS: Ondansetron PF 4 MG/2 ML Vial IVP PRN (12:11)
[2023-03-04 21:49] LABS: ALT (SGPT) 18 U/L (8-55); AST (SGOT) 38 U/L (5-34); Albumin 3.2 g/dL (3.5-5.0); Alkaline Phosphatase 90 U/L (40-110); Anion Gap 21 mmol/L (10-20); BUN (Urea Nitrogen) 12 mg/dL (7.0-18.7); Bilirubin, Total 0.3 mg/dL (0.2-1.2); Calc. Creatinine Clearance 112 mL/min (70-130); Carbon Dioxide 13 mmol/L (22-29); Chloride 113 mmol/L (98-107); Estimated GFR 62; Globulin 5.1 g/dL (2.4-3.5); Protein, Total 8.3 g/dL (6.0-8.3); Sodium 141 mmol/L (136-145)
[2023-03-04 22:01] LABS: Glucose 120 mg/dL (70-105); Potassium 5.1 mmol/L (3.5-5.1)
[2023-03-05] MEDS: HYDROcodone/Acetaminophen 5/325 mg Tablet PO SCH ×4 (02:08→20:39)
[2023-03-05] MEDS: Piperacillin/Tazobactam 3.375 GM in Sodium Chloride 0.9% 100 ML IVPB SCH ×3 (03:44→20:40)
[2023-03-05] MEDS: Sodium Chloride 0.9% 1,000 ML IV SCH ×2 (03:44→13:52)
[2023-03-05] MEDS: Acetaminophen 325 MG TAB PO SCH ×4 (05:34→20:39)
[2023-03-05] MEDS: Ibuprofen 200 MG TAB PO SCH ×3 (05:48→20:39)
[2023-03-05] MEDS: Lidocaine 4% Topical Sol 50 ML BOT TOP SCH (08:29)
[2023-03-05] MEDS: Ondansetron PF 4 MG/2 ML Vial IVP PRN ×2 (10:09→15:49)
[2023-03-05] MEDS: Morphine 2 MG/ML VIAL SLOW IVP PRN (10:09)
[2023-03-05 11:10] LABS: #Eosinphils 0.2 thou/uL (0.0-0.7); #Monocytes 0.5 thou/uL (0.11-0.59); #Neutrophils 3.8 thou/uL (1.40-6.50); %Basophils 0.6 % (0.0-1.0); %Eosinophils 3.3 % (0.0-10.0); %Lymphocytes 33.2 % (21.0-51.0); %Monocytes 7.4 % (0.0-10.0); %Neutrophils 55.2 % (42.0-75.0); Hemoglobin 8.1 g/dL (12.0-16.0); Mean Corpuscular Hemoglobin 27.7 pg (27.0-31.0); Mean Platelet Volume 8.2 fL (7.4-10.4); RBC Distribution Width 17.2 % (11.5-14.5); Red Blood Cell (RBC) Count 2.92 mill/uL (4.20-5.40); White Blood Cell (WBC) Count 6.9 10x3/uL (4.8-10.8)
[2023-03-05 11:13] LABS: Mean Corpuscular Volume 92.5 fl (78.0-98.0); Platelet Count 453 10x3/uL (130-400)
[2023-03-05 12:26] LABS: ALT (SGPT) 13 U/L (8-55); AST (SGOT) 12 U/L (5-34); Albumin 3.3 g/dL (3.5-5.0); Alkaline Phosphatase 81 U/L (40-110); Anion Gap 16 mmol/L (10-20); BUN (Urea Nitrogen) 10 mg/dL (7.0-18.7); Bilirubin, Total 0.3 mg/dL (0.2-1.2); Calc. Creatinine Clearance 129 mL/min (70-130); Carbon Dioxide 19 mmol/L (22-29); Chloride 107 mmol/L (98-107); Estimated GFR 73; Globulin 4.3 g/dL (2.4-3.5); Glucose 81 mg/dL (70-105); Potassium 3.6 mmol/L (3.5-5.1); Protein, Total 7.6 g/dL (6.0-8.3); Sodium 138 mmol/L (136-145)
[2023-03-05] MEDS: Ferrous Sulfate 325 MG TAB PO SCH (16:58)
[2023-03-05] MEDS: Ascorbic Acid 500 mg Chewable Tablet PO SCH (16:58)
[2023-03-06] MEDS: Sodium Chloride 0.9% 1,000 ML IV SCH ×3 (02:02→20:27)
[2023-03-06] MEDS: Ibuprofen 200 MG TAB PO SCH ×3 (04:40→20:27)
[2023-03-06] MEDS: HYDROcodone/Acetaminophen 5/325 mg Tablet PO SCH ×4 (04:40→20:27)
[2023-03-06] MEDS: Acetaminophen 325 MG TAB PO SCH ×4 (04:40→20:27)
[2023-03-06] MEDS: Piperacillin/Tazobactam 3.375 GM in Sodium Chloride 0.9% 100 ML IVPB SCH ×3 (04:43→20:27)
[2023-03-06] MEDS: Lidocaine 4% Topical Sol 50 ML BOT TOP SCH (08:29)
[2023-03-06] MEDS: Morphine 2 MG/ML VIAL SLOW IVP PRN (08:29)
[2023-03-06] MEDS: Ondansetron PF 4 MG/2 ML Vial IVP PRN (10:20)
[2023-03-06 11:57] LABS: #Eosinphils 0.2 thou/uL (0.0-0.7); #Monocytes 0.5 thou/uL (0.11-0.59); #Neutrophils 4.5 thou/uL (1.40-6.50); %Basophils 0.4 % (0.0-1.0); %Eosinophils 2.5 % (0.0-10.0); %Monocytes 6.6 % (0.0-10.0); %Neutrophils 62.4 % (42.0-75.0); Hemoglobin 7.3 g/dL (12.0-16.0); Mean Corpuscular HGB CONC 30.4 g/dL (32.0-36.0); Mean Corpuscular Hemoglobin 28.3 pg (27.0-31.0); Mean Platelet Volume 8.5 fL (7.4-10.4); Platelet Count 420 10x3/uL (130-400); RBC Distribution Width 17.2 % (11.5-14.5); Red Blood Cell (RBC) Count 2.58 mill/uL (4.20-5.40); White Blood Cell (WBC) Count 7.2 10x3/uL (4.8-10.8)
[2023-03-06 12:12] LABS: ALT (SGPT) 11 U/L (8-55); AST (SGOT) 10 U/L (5-34); Alkaline Phosphatase 72 U/L (40-110); Anion Gap 10 mmol/L (10-20); BUN (Urea Nitrogen) 6 mg/dL (7.0-18.7); Bilirubin, Total 0.3 mg/dL (0.2-1.2); Calc. Creatinine Clearance 140 mL/min (70-130); Calcium 8.5 mg/dL (7.8-10.44); Carbon Dioxide 24 mmol/L (22-29); Chloride 110 mmol/L (98-107); Estimated GFR 81; Glucose 82 mg/dL (70-105); Potassium 3.6 mmol/L (3.5-5.1); Sodium 140 mmol/L (136-145)
[2023-03-06] MEDS: Ferrous Sulfate 325 MG TAB PO SCH (17:14)
[2023-03-06] MEDS: Ascorbic Acid 500 mg Chewable Tablet PO SCH (17:14)
[2023-03-07] MEDS: Piperacillin/Tazobactam 3.375 GM in Sodium Chloride 0.9% 100 ML IVPB SCH ×3 (03:57→20:50)
[2023-03-07] MEDS: Ibuprofen 200 MG TAB PO SCH ×3 (03:59→20:46)
[2023-03-07] MEDS: Acetaminophen 325 MG TAB PO SCH ×4 (03:59→23:27)
[2023-03-07] MEDS: Sodium Chloride 0.9% 1,000 ML IV SCH ×2 (04:00→17:30)
[2023-03-07] MEDS: HYDROcodone/Acetaminophen 5/325 mg Tablet PO SCH ×4 (06:12→20:46)
[2023-03-07 06:27] LABS: Hematocrit 21.5 % (36.0-47.0); Hemoglobin 6.6 g/dL (12.0-16.0); Mean Corpuscular HGB CONC 30.7 g/dL (32.0-36.0); Mean Corpuscular Volume 91.1 fl (78.0-98.0); Mean Platelet Volume 8.7 fL (7.4-10.4); Platelet Count 407 10x3/uL (130-400); RBC Distribution Width 17.4 % (11.5-14.5); Red Blood Cell (RBC) Count 2.36 mill/uL (4.20-5.40); White Blood Cell (WBC) Count 6.3 10x3/uL (4.8-10.8)
[2023-03-07 06:36] LABS: Delete Auto Diff?? YES; Manual Diff?? YES
[2023-03-07 07:19] LABS: ALT (SGPT) 10 U/L (8-55); AST (SGOT) 9 U/L (5-34); Albumin 2.7 g/dL (3.5-5.0); Alkaline Phosphatase 70 U/L (40-110); Anion Gap 9 mmol/L (10-20); BUN (Urea Nitrogen) 5 mg/dL (7.0-18.7); Bilirubin, Total 0.3 mg/dL (0.2-1.2); Calc. Creatinine Clearance 150 mL/min (70-130); Calcium 8.3 mg/dL (7.8-10.44); Carbon Dioxide 23 mmol/L (22-29); Chloride 110 mmol/L (98-107); Estimated GFR 88; Globulin 3.5 g/dL (2.4-3.5); Glucose 86 mg/dL (70-105); Magnesium 1.6 mg/dL (1.6-2.6); Potassium 3.4 mmol/L (3.5-5.1); Protein, Total 6.2 g/dL (6.0-8.3); Sodium 139 mmol/L (136-145)
[2023-03-07 07:44] LABS: Anisocytosis SLIGHT = 6-15 cells HPF (0-5); Band 1 % (5-11); CellaVision Operator ID LAB.CMB; Eosinophils 5 % (0-10); Lymphocytes 20 % (21-51); Macrocytosis MODERATE=16-30 cells HPF (0-5); Monocytes 3 % (0-10); Neutrophil 69 % (42-75); Ovalocytes SLIGHT = 2-5 cells HPF (0-1); Platelet Adequacy Comment Platelets Increased; Polychromasia SLIGHT = 2-3 cells HPF (0-2); Target Cells SLIGHT = 2-5 cells HPF (0-1); Total Cell Count 103
[2023-03-07] MEDS: Morphine 2 MG/ML VIAL SLOW IVP PRN (09:16)
[2023-03-07] MEDS: Lidocaine 4% Topical Sol 50 ML BOT TOP SCH ×2 (09:16→09:28)
[2023-03-07] MEDS: Ascorbic Acid 500 mg Chewable Tablet PO SCH (17:29)
[2023-03-07] MEDS: Ferrous Sulfate 325 MG TAB PO SCH (17:29)
[2023-03-08] MEDS: HYDROcodone/Acetaminophen 5/325 mg Tablet PO SCH ×4 (04:19→20:39)
[2023-03-08] MEDS: Sodium Chloride 0.9% 1,000 ML IV SCH ×2 (04:19→12:53)
[2023-03-08] MEDS: Acetaminophen 325 MG TAB PO SCH ×3 (04:19→18:32)
[2023-03-08] MEDS: Ibuprofen 200 MG TAB PO SCH ×3 (04:20→21:52)
[2023-03-08] MEDS: Piperacillin/Tazobactam 3.375 GM in Sodium Chloride 0.9% 100 ML IVPB SCH ×3 (04:55→19:49)
[2023-03-08] MEDS: Ondansetron PF 4 MG/2 ML Vial IVP PRN ×3 (04:55→19:19)
[2023-03-08] MEDS: Morphine 2 MG/ML VIAL SLOW IVP PRN ×2 (05:17→09:47)
[2023-03-08 08:49] LABS: #Eosinphils 0.2 thou/uL (0.0-0.7); #Monocytes 0.6 thou/uL (0.11-0.59); #Neutrophils 4.7 thou/uL (1.40-6.50); %Basophils 0.5 % (0.0-1.0); %Eosinophils 2.9 % (0.0-10.0); %Lymphocytes 32.2 % (21.0-51.0); Mean Corpuscular HGB CONC 31.1 g/dL (32.0-36.0); Mean Corpuscular Hemoglobin 27.6 pg (27.0-31.0); Mean Corpuscular Volume 88.5 fl (78.0-98.0); Mean Platelet Volume 8.5 fL (7.4-10.4); Platelet Count 408 10x3/uL (130-400); RBC Distribution Width 22.3 % (11.5-14.5); Red Blood Cell (RBC) Count 3.92 mill/uL (4.20-5.40); White Blood Cell (WBC) Count 8.2 10x3/uL (4.8-10.8)
[2023-03-08 08:56] LABS: Hematocrit 34.7 % (36.0-47.0); Hemoglobin 10.8 g/dL (12.0-16.0)
[2023-03-08 09:15] LABS: ALT (SGPT) 12 U/L (8-55); AST (SGOT) 18 U/L (5-34); Albumin 3.1 g/dL (3.5-5.0); Alkaline Phosphatase 83 U/L (40-110); Anion Gap 17 mmol/L (10-20); BUN (Urea Nitrogen) 5 mg/dL (7.0-18.7); Bilirubin, Total 0.5 mg/dL (0.2-1.2); Calc. Creatinine Clearance 139 mL/min (70-130); Calcium 8.9 mg/dL (7.8-10.44); Carbon Dioxide 18 mmol/L (22-29); Chloride 110 mmol/L (98-107); Estimated GFR 80; Globulin 4.5 g/dL (2.4-3.5); Glucose 93 mg/dL (70-105); Magnesium 1.8 mg/dL (1.6-2.6); Potassium 4.5 mmol/L (3.5-5.1); Protein, Total 7.6 g/dL (6.0-8.3); Sodium 140 mmol/L (136-145)
[2023-03-08] MEDS: Lidocaine 4% Topical Sol 50 ML BOT TOP SCH (09:50)
[2023-03-08] MEDS: Ferrous Sulfate 325 MG TAB PO SCH (17:00)
[2023-03-08] MEDS: Ascorbic Acid 500 mg Chewable Tablet PO SCH (17:00)
[2023-03-08] MEDS ORDERED: Melatonin 3 MG TAB PO PRN (19:41)
[2023-03-09] MEDS: Acetaminophen 325 MG TAB PO SCH ×5 (01:07→23:45)
[2023-03-09] MEDS: Sodium Chloride 0.9% 1,000 ML IV SCH (01:07)
[2023-03-09] MEDS: HYDROcodone/Acetaminophen 5/325 mg Tablet PO SCH ×4 (03:32→21:03)
[2023-03-09] MEDS: Piperacillin/Tazobactam 3.375 GM in Sodium Chloride 0.9% 100 ML IVPB SCH ×3 (03:51→19:58)
[2023-03-09] MEDS: Ibuprofen 200 MG TAB PO SCH (05:55)
[2023-03-09 06:26] LABS: #Basophils 0.1 thou/uL (0.0-0.2); #Eosinphils 0.4 thou/uL (0.0-0.7); #Monocytes 0.6 thou/uL (0.11-0.59); %Basophils 0.8 % (0.0-1.0); %Eosinophils 4.9 % (0.0-10.0); %Lymphocytes 32.2 % (21.0-51.0); %Monocytes 7.5 % (0.0-10.0); %Neutrophils 53.8 % (42.0-75.0); Hematocrit 29.8 % (36.0-47.0); Hemoglobin 9.6 g/dL (12.0-16.0); Mean Corpuscular HGB CONC 32.2 g/dL (32.0-36.0); Mean Corpuscular Hemoglobin 27.8 pg (27.0-31.0); Mean Corpuscular Volume 86.4 fl (78.0-98.0); Mean Platelet Volume 9.2 fL (7.4-10.4); Platelet Count 371 10x3/uL (130-400); RBC Distribution Width 21.7 % (11.5-14.5); Red Blood Cell (RBC) Count 3.45 mill/uL (4.20-5.40); White Blood Cell (WBC) Count 7.5 10x3/uL (4.8-10.8)
[2023-03-09] MEDS: Morphine 2 MG/ML VIAL SLOW IVP PRN (10:31)
[2023-03-09] MEDS: Lidocaine 4% Topical Sol 50 ML BOT TOP SCH (10:35)
[2023-03-09] MEDS: Ondansetron PF 4 MG/2 ML Vial IVP PRN (12:03)
[2023-03-09] MEDS ORDERED: Promethazine HCl 25 MG in Sodium Chloride 0.9% 50 ML IVPB PRN (13:56)
[2023-03-09] MEDS: Ascorbic Acid 500 mg Chewable Tablet PO SCH (17:09)
[2023-03-09] MEDS: Ferrous Sulfate 325 MG TAB PO SCH (17:09)
[2023-03-09] MEDS: Famotidine 20 MG TAB PO SCH (19:58)
[2023-03-10] MEDS: HYDROcodone/Acetaminophen 5/325 mg Tablet PO SCH ×2 (03:26→08:37)
[2023-03-10] MEDS: Piperacillin/Tazobactam 3.375 GM in Sodium Chloride 0.9% 100 ML IVPB SCH ×2 (04:59→11:57)
[2023-03-10] MEDS: Acetaminophen 325 MG TAB PO SCH ×2 (05:02→11:57)
[2023-03-10 08:11] VITALS: BP 114/70; TEMP 98
[2023-03-10] MEDS: Famotidine 20 MG TAB PO SCH (08:38)
[2023-03-10] MEDS: Lidocaine 4% Topical Sol 50 ML BOT TOP SCH (08:39)
[2023-03-10] MEDS: Morphine 2 MG/ML VIAL SLOW IVP PRN (10:51)
== END 2023-03-10 15:40 | DRG 572 ==
LOC: ERS 14:01 → INTOOBSV 17:42 → T4-B 17:42 → OBSVTOIN 03-02 16:37
PROVIDERS: ADMIT Family Medicine; ATTEND Family Medicine
PROC: 0JBB0ZZ Excision of Perineum Subcutaneous Tissue and Fascia, Open Approach (ICD-10-PCS; principal; 2023-03-02)
DX: L02.214 Cutaneous abscess of groin (principal); L73.2 Hidradenitis suppurativa; D64.9 Anemia, unspecified; Z98.51 Tubal ligation status; Z90.710 Acquired absence of both cervix and uterus; Z98.890 Other specified postprocedural states; Z79.899 Other long term (current) drug therapy
CPT/HCPCS: 36415; 36430; 74177; 80048; 80053; 81001; 83605; 83735; 84100; 85025; 86850; 86900; 86901; 87040; 93005; 93010; 96365; 96375; 97139; J1100; J1885; J2272; J2405; J2543; J2550; J2704; J3010; J3370; J3490; J7050; P9016; Q0162; Q9967

== ENCOUNTER 2023-03-23 13:45 | Observation (INO) | payer OTHER, MEDICAID ==
[2023-03-23] MEDS ORDERED: Ondansetron PF 4 MG/2 ML Vial ONE ×2 (15:25→20:11)
[2023-03-23] MEDS ORDERED: Morphine 4 MG/ML VIAL ONE (15:25)
[2023-03-23 16:22] LABS: #Eosinphils 0.3 thou/uL (0.0-0.7); #Monocytes 0.5 thou/uL (0.11-0.59); %Basophils 0.5 % (0.0-1.0); %Eosinophils 2.9 % (0.0-10.0); %Monocytes 6.4 % (0.0-10.0); Hematocrit 36.2 % (36.0-47.0); Hemoglobin 11.3 g/dL (12.0-16.0); Mean Corpuscular HGB CONC 31.2 g/dL (32.0-36.0); Mean Corpuscular Hemoglobin 27.8 pg (27.0-31.0); Mean Corpuscular Volume 89.2 fl (78.0-98.0); Mean Platelet Volume 8.6 fL (7.4-10.4); Platelet Count 369 10x3/uL (130-400); RBC Distribution Width 19.9 % (11.5-14.5); Red Blood Cell (RBC) Count 4.06 mill/uL (4.20-5.40); White Blood Cell (WBC) Count 8.5 10x3/uL (4.8-10.8)
[2023-03-23] MEDS ORDERED: Piperacillin/Tazobactam 4.5 GM VIAL ONE (16:29)
[2023-03-23 16:47] LABS: ALT (SGPT) 9 U/L (8-55); AST (SGOT) 14 U/L (5-34); Albumin 3.2 g/dL (3.5-5.0); Alkaline Phosphatase 96 U/L (40-110); Anion Gap 12 mmol/L (10-20); BUN (Urea Nitrogen) 9 mg/dL (7.0-18.7); Bilirubin, Total 0.2 mg/dL (0.2-1.2); Calc. Creatinine Clearance 0 mL/min (70-130); Calcium 8.5 mg/dL (7.8-10.44); Carbon Dioxide 27 mmol/L (22-29); Chloride 106 mmol/L (98-107); Estimated GFR 101; Globulin 3.2 g/dL (2.4-3.5); Glucose 92 mg/dL (70-105); Potassium 4.5 mmol/L (3.5-5.1); Protein, Total 6.4 g/dL (6.0-8.3); Sodium 140 mmol/L (136-145)
[2023-03-23] MEDS ORDERED: Vancomycin 1.5 GRAM/300 ML BAG 1.5 GM in Premix Bag 1 BAG IVPB SCH (17:30)
[2023-03-23 17:48] LABS: Bacteria/HPF None Seen HPF (None Seen); Bilirubin Negative (Negative); Blood, Urine 3+ (Negative); CAUTI Indications for Culture Dysuria,urgency,freq; Clarity Turbid (Clear); Glucose, Urine (Dipstick) Normal (Negative); Ketone, Urine Negative (Negative); Leukocyte 500 Leu/uL (Negative); Nitrite Negative (Negative); Protein, Urine (Dipstick) 20 mg/dL (Neg-Trace); RBC/HPF Greater than 50 HPF (0-3); Specific Gravity, Urine 1.039 (1.002-1.036); Squamous Epithelial 0-3 HPF (0-3); Urobilinogen Normal mg/dL (Less than 2); WBC/HPF Greater than 50 HPF (0-3); pH, Urine 7.5 (5.0-9.0)
[2023-03-23 17:50] LABS: Urine Culture Reflex Yes Yes
[2023-03-23] MEDS ORDERED: HYDROmorphone 0.5 MG/0.5 ML SYRINGE ONE (18:50)
[2023-03-23] MEDS ORDERED: Ondansetron ODT 4 MG TAB PO PRN (21:53)
[2023-03-23] MEDS ORDERED: Acetaminophen 325 MG TAB PO PRN (21:53)
[2023-03-23] MEDS ORDERED: Ondansetron PF 4 MG/2 ML Vial IVP PRN (21:53)
[2023-03-23] MEDS ORDERED: Acetaminophen 650 MG Suppository PR PRN (21:53)
[2023-03-23 22:35] VITALS: BMI 47.3
[2023-03-23] MEDS ORDERED: Promethazine HCl 12.5 MG in Sodium Chloride 0.9% 50 ML IVPB SCH (23:00)
[2023-03-23] MEDS: Piperacillin/Tazobactam 3.375 GM in Sodium Chloride 0.9% 100 ML IVPB SCH (23:39)
[2023-03-24] MEDS ORDERED: VANCOMYCIN 1.25 GM/250 ML BAG 1.25 GM in Premix Bag 1 BAG IVPB SCH (06:00)
[2023-03-24 07:38] LABS: #Basophils 0.1 thou/uL (0.0-0.2); #Eosinphils 0.2 thou/uL (0.0-0.7); #Monocytes 0.3 thou/uL (0.11-0.59); #Neutrophils 4.5 thou/uL (1.40-6.50); %Basophils 0.8 % (0.0-1.0); %Eosinophils 3.2 % (0.0-10.0); %Lymphocytes 21.2 % (21.0-51.0); %Monocytes 4.3 % (0.0-10.0); %Neutrophils 70.2 % (42.0-75.0); Hematocrit 36.3 % (36.0-47.0); Hemoglobin 11.2 g/dL (12.0-16.0); Mean Corpuscular HGB CONC 30.9 g/dL (32.0-36.0); Mean Corpuscular Hemoglobin 28.1 pg (27.0-31.0); Mean Corpuscular Volume 91.2 fl (78.0-98.0); Mean Platelet Volume 8.4 fL (7.4-10.4); Platelet Count 306 10x3/uL (130-400); RBC Distribution Width 19.8 % (11.5-14.5); Red Blood Cell (RBC) Count 3.98 mill/uL (4.20-5.40); White Blood Cell (WBC) Count 6.3 10x3/uL (4.8-10.8)
[2023-03-24 07:59] LABS: Anion Gap 14 mmol/L (10-20); BUN (Urea Nitrogen) 7 mg/dL (7.0-18.7); Calc. Creatinine Clearance 151 mL/min (70-130); Calcium 8.6 mg/dL (7.8-10.44); Carbon Dioxide 21 mmol/L (22-29); Chloride 109 mmol/L (98-107); Estimated GFR 91; Glucose 77 mg/dL (70-105); Sodium 140 mmol/L (136-145)
[2023-03-24] MEDS ORDERED: Vancomycin 1 GM in Premix Bag 1 BAG IVPB SCH (08:00)
[2023-03-24] MEDS ORDERED: Lactated Ringer's 1,000 ML IV SCH (08:30)
[2023-03-24] MEDS: Piperacillin/Tazobactam 3.375 GM in Sodium Chloride 0.9% 100 ML IVPB SCH (08:49)
[2023-03-24] MEDS: Morphine 4 MG/ML VIAL SLOW IVP PRN ×2 (09:00→20:13)
[2023-03-24] MEDS: Gabapentin 300 MG CAP PO SCH ×3 (09:01→20:06)
[2023-03-24] MEDS ORDERED: Rifampin 300 MG CAP PO SCH (14:45)
[2023-03-24] MEDS: Clindamycin 150 MG CAP PO SCH (20:06)
[2023-03-25 00:03] LABS: Bacteria/HPF None Seen HPF (None Seen); Bilirubin Negative (Negative); Blood, Urine 2+ (Negative); CAUTI Indications for Culture Dysuria,urgency,freq; Clarity Extra Turbid (Clear); Glucose, Urine (Dipstick) Normal (Negative); Ketone, Urine Negative (Negative); Leukocyte 500 Leu/uL (Negative); Nitrite Negative (Negative); Protein, Urine (Dipstick) 30 mg/dL (Neg-Trace); RBC/HPF Greater than 50 HPF (0-3); Specific Gravity, Urine 1.019 (1.002-1.036); Squamous Epithelial 21-50 HPF (0-3); Urobilinogen Normal mg/dL (Less than 2); WBC/HPF Greater than 50 HPF (0-3); pH, Urine 6.5 (5.0-9.0)
[2023-03-25 00:06] LABS: Urine Culture Reflex Yes Yes
[2023-03-25 07:55] VITALS: BP 112/66; TEMP 98
[2023-03-25 08:17] LABS: #Eosinphils 0.2 thou/uL (0.0-0.7); #Monocytes 0.3 thou/uL (0.11-0.59); %Basophils 0.7 % (0.0-1.0); %Eosinophils 5.5 % (0.0-10.0); %Monocytes 7.1 % (0.0-10.0); %Neutrophils 46.5 % (42.0-75.0); Hematocrit 37.6 % (36.0-47.0); Hemoglobin 11.3 g/dL (12.0-16.0); Mean Corpuscular HGB CONC 30.1 g/dL (32.0-36.0); Mean Corpuscular Volume 93.3 fl (78.0-98.0); Mean Platelet Volume 8.8 fL (7.4-10.4); Platelet Count 267 10x3/uL (130-400); RBC Distribution Width 19.9 % (11.5-14.5); Red Blood Cell (RBC) Count 4.03 mill/uL (4.20-5.40); White Blood Cell (WBC) Count 4.4 10x3/uL (4.8-10.8)
[2023-03-25 08:53] LABS: Anion Gap 15 mmol/L (10-20); BUN (Urea Nitrogen) 7 mg/dL (7.0-18.7); CRP (Inflammatory) 3.83 mg/dL (= or < 0.5); Calc. Creatinine Clearance 163 mL/min (70-130); Calcium 8.9 mg/dL (7.8-10.44); Carbon Dioxide 20 mmol/L (22-29); Chloride 107 mmol/L (98-107); Estimated GFR 99; Glucose 76 mg/dL (70-105); Magnesium 1.9 mg/dL (1.6-2.6); Sodium 138 mmol/L (136-145)
[2023-03-25] MEDS ORDERED: CLINDAMYCIN 1% TP SCH ×2 (09:00→11:00)
[2023-03-25] MEDS: Gabapentin 300 MG CAP PO SCH ×2 (09:06→15:19)
[2023-03-25] MEDS: Clindamycin 150 MG CAP PO SCH (09:07)
[2023-03-25] MEDS ORDERED: Rifampin 300 MG CAP PO SCH (10:00)
[2023-03-25] MEDS: Morphine 4 MG/ML VIAL SLOW IVP PRN (11:23)
== END 2023-03-25 16:00 ==
LOC: ERS 13:45 → T4-A 20:07
PROVIDERS: ADMIT Student in an Organized Health Care Education/Training Program; ATTEND Internal Medicine
DX: L73.2 Hidradenitis suppurativa (principal); L03.314 Cellulitis of groin; N18.9 Chronic kidney disease, unspecified; N39.0 Urinary tract infection, site not specified; G60.9 Hereditary and idiopathic neuropathy, unspecified; Z90.710 Acquired absence of both cervix and uterus; Z87.891 Personal history of nicotine dependence; Z79.899 Other long term (current) drug therapy
CPT/HCPCS: 51702; 74177; 80048 ×2; 80053; 81001 ×2; 83605; 83735; 84145; 85025 ×3; 86140; 87040; 87086 ×2; 96365; 96367; 96375; 97139 ×2; 99285; J3370 ×2; 36415; 96376; G0378; J1170; J2270; J2405; J2543; J2550; J3490; J7120; Q9967

== ENCOUNTER 2023-05-03 14:21 | Emergency (ER) | payer OTHER, MEDICAID | END 2023-05-03 16:22 | disposition home or self-care (01) | LOC: ERS 14:21 | DX: S31.40XD Unspecified open wound of vagina and vulva, subsequent encounter (principal); N18.2 Chronic kidney disease, stage 2 (mild); Z87.891 Personal history of nicotine dependence | CPT/HCPCS: 99282 ==

== ENCOUNTER 2023-07-06 09:50 | Emergency (ER) | payer OTHER ==
[2023-07-06 12:35] LABS: SARS-CoV-2 NAA Rapid Test Not Detected (NotDetected)
== END 2023-07-06 13:07 | disposition home or self-care (01) ==
LOC: ERS 09:50
DX: J06.9 Acute upper respiratory infection, unspecified (principal); Z20.822 Contact with and (suspected) exposure to COVID-19; Z87.891 Personal history of nicotine dependence
CPT/HCPCS: 99283

== ENCOUNTER 2024-08-02 21:27 | Emergency (ER) | payer MEDICARE, MEDICAID ==
[2024-08-02] MEDS ORDERED: Ketorolac Tromethamine 30 MG (1 mL) VIAL ONE (23:01)
== END 2024-08-03 00:02 | disposition home or self-care (01) ==
LOC: ERS 21:27
DX: S92.151A Displaced avulsion fracture (chip fracture) of right talus, initial encounter for closed fracture (principal); F17.200 Nicotine dependence, unspecified, uncomplicated; W06.XXXA Fall from bed, initial encounter
CPT/HCPCS: 29515; 73610; 96372; 99283; J1885